=== PATIENT | female | born 1960 | race Caucasian/White ===

== ENCOUNTER 2016-12-02 23:32 | Inpatient (IN) ==
[2016-12-03 01:30] LABS: Basophils # 0.1 10*3/uL (0.0-0.2); Basophils % 0.7 % (0.0-0.8); Eosinophils # 0.2 10*3/uL (0.0-0.87); Eosinophils % 1.2 % (0.00-10.9); Hematocrit 43.3 VOL% (35.7-47.0); Hemoglobin 13.9 GM/DL (12.0-16.0); Immature Granulocytes % 0.4 %; Immature Granulocytes Absolute 0.06 #; Lymphocytes # 3.9 10*3/uL (1.4-4.0); Lymphocytes % 28.5 % (21.3-54.2); Mean Corpuscular HGB Conc 32.1 GM/DL (32-36); Mean Corpuscular Hemoglobin 26 PG (27-34); Mean Corpuscular Volume 79.6 FL (87-102); Mean Platelet Volume 9.8 FL (9.6-12.0); Monocytes % 7.6 % (1.7-12.7); Neutrophils # 8.4 10*3/uL (1.4-7.4); Neutrophils % 61.6 % (38.7-73.9); Platelet Count 373 T/CUMM (130-400); Red Blood Count 5.44 MC/CUMM (3.8-5.5); Red Cell Distribution Width 14.2 % (9.3-17.3); White Blood Count 13.7 T/CUMM (4-12)
[2016-12-03 01:47] LABS: Calcium 8.9 MG/DL (8.5-10.1); Osmolality,Calculated 291.7 MOS/KG (273-304); PT Patient Result 10.1 SECS; Partial Thromboplastin Time 28.9 SECS (0-40); Potassium 3.9 MMOL/L (3.5-5.1)
[2016-12-03] MEDS ORDERED: CEFTAROLINE 600 MG in SODIUM CHLORIDE 0.9% 100 ML IV STA (01:59)
--- NOTE | 2016-12-03 02:01 | Emergency Department Note ---
Chacho Will Brittany, am scribing for, and in the presence of, Frank Reed MD 00 :25. Brianna Will Hans, MD, personally performed the services described in this documentation, ascribed by Alma Flor in my presence, and it is both accurate and complete . Arrival - Arrival Chief Complaint: Extremity Problem Stated Complaint: left leg ED Nursing Triage Note: Patient to triage with c/o cellulitis to E for the past 2 weeks. Patient was seen in ED for same c/o 2 weeks ago and given ABX but cellulitis has not improved. Mode of Arrival: Ambulatory Limitations: No Limitations Source: Patient, RN Notes Reviewed Time Seen by Provider: 12/02/16 23:53 - History of Present Illness HPI Narrative: Patient is a 56 y/o white female presenting to the ED with c/o left lower leg swelling and redness that began tonight. Patient reports that she was seen here about last week with the same complaint and was diagnosed with Cellulitis. She was placed on Clindamycin which she has been taking compliantly and has 3 more doses left. Patient notes that the Cellulitis was getting better, but noticed tonight that her left lower leg was beginning to swell and have redness once again. She states that has not led a sedentary lifestyle since diagnosis of Cellulitis, noting that she has been working as scheduled. Patient reports that on last visit she did have an ultrasound of the LLE performed to rule out DVT. She currently is on Plavix secondary to AL 2 years ago with stent placement. Patient has no further complaints. Date of Last Menstrual Period: menopause Allergies/Adverse Reactions: Allergies Allergy/AdvReac Type Severity Reaction Status Date / Time Sulfa (Sulfonamide Allergy Severe Swelling Verified 12/02/16 23:39 Antibiotics) of Lip/Tongue/Throat Home Medications: Home Medications Medication Instructions Recorded Confirmed Type Clindamycin Cap [Cleocin Cap] 300 mg PO Q6HR #30 capsule 11/23/16 12/02/16 Rx Amlodipine Besylate [Amlodipine 1 tablet PO BID 12/02/16 12/02/16 History Besylate] Aspirin EC Tab 1 tablet PO DAILY 12/02/16 12/02/16 History Atorvastatin [Lipitor] 1 tablet PO BEDTIME 12/02/16 12/02/16 History Clopidogrel Bisulfate [Clopidogrel] 1 tablet PO DAILY 12/02/16 12/02/16 History Gabapentin [Gabapentin] 1 capsule PO TID 12/02/16 12/02/16 History Hydrocodone/Acetaminophen 1 tablet PO Q4-6H PRN 12/02/16 12/02/16 History [Hydrocodon-Acetaminophn 10-325] Insulin Degludec [Tresiba 95 units SUBCUT BEDTIME 12/02/16 12/02/16 History Flextouch U-200] Losartan/Hydrochlorothiazide 1 tablet PO DAILY 12/02/16 12/02/16 History [Losartan-Hctz 50-12.5 mg Tab] Metformin HCl [Metformin HCl ER] 2 tablet PO BID 12/02/16 12/02/16 History Metoprolol Tartrate Tab [Lopressor 1 tablet PO BID 12/02/16 12/02/16 History Tab] Omeprazole [Omeprazole] 1 capsule PO DAILY 12/02/16 12/02/16 History Review of System - Review of System 12 point system: reviewed and no additional remarkable complaints except as stated - Review of System Constitutional: Absent: chills, fever Eyes: Absent: vision change Head/Ears/Nose/Throat: Absent: nasal drainage, sore throat Respiratory: Absent: respiratory distress Cardiovascular: Absent: chest pain Gastrointestinal: Absent: abdominal pain Genitourinary female: Absent: dysuria, frequency, urgency Musculoskeletal: Present: leg pain (left). Absent: arm pain, back pain, neck pain Skin: Present: other (erythema left leg) Neurological: Absent: headache Psychiatric: Absent: anxiety, depression Medical,Surgical,& Family Hx - Medical History Cardio: History of: Hypertension, AL Neurology: No history of: Seizures Endocrine: History of: Diabetes Mellitus (IDDM), Dyslipidemia - Social History Smoking Status: Never smoker Frequency of Alcohol Use: None Type of Drug Use: None Exam Vital Signs: Vital Signs Temperature 97.8 F 12/02/16 23:35 Pulse Rate 87 12/02/16 23:35 Respiratory Rate 20 12/02/16 23:35 Blood Pressure 197/85 12/02/16 23:35 O2 Sat by Pulse Oximetry 95 12/02/16 23:35 - General General appearance: alert, in no apparent distress - Head Head exam: Present: atraumatic, normocephalic, normal inspection - Eye Eye exam: Present: normal appearance, PERRL, EOMI - ENT ENT exam: Present: normal exam, normal oropharynx - Neck Neck exam: Present: normal inspection, full ROM, trachea midline - Chest Chest inspection: Present: normal inspection, symmetric chest wall rise - Respiratory Respiratory exam: Present: normal lung sounds bilaterally. Absent: respiratory distress - Cardiovascular Cardiovascular exam: Present: regular rate, normal rhythm, normal heart sounds - Abdominal Exam Abdominal exam: Present: soft, normal bowel sounds. Absent: tenderness - Extremities Exam Extremities exam: Present: tenderness (left lower leg), pedal edema (non- pitting left lower extremity). Absent: normal inspection (petechial hemorrhage to left lower leg) - Neurological Exam Neurological exam: Present: alert, oriented X3, CN II-XII intact. Absent: motor sensory deficit - Psychiatric Psychiatric exam: Present: normal affect, normal mood - Skin Skin exam: Present: warm, dry Course Course Narrative: This patient was evaluated with labwork and duplex US. No DVT was seen. She has failed outpatient antibiotics for cellulitis and also has hyperglycemia. I discussed this with the hospitalist community relations [employer] lieutenant and they agreed to admit for antibiotics, glucose control, and leg elevation. Results - Labs CBC & BMP: 12/03/16 01:09 12/03/16 01:09 Lab Results: I have reviewed the patients labs Labs: Laboratory Tests 12/03/16 01:09 WBC 13.7 H RBC 5.44 Hgb 13.9 Hct 43.3 MCV 79.6 L MCH 26 L Plt Count 373 Neut # (Auto) 8.4 H [place] # (Auto) 1.0 H Disposition Clinical Impression: Cellulitis Case discussed with: patient, patient's family Disposition: Still a Patient Condition: Stable Time of Disposition: 02:01
[2016-12-03] MEDS ORDERED: IBUPROFEN 400 MG TABLET ONE (02:13)
[2016-12-03] MEDS ORDERED: CEFTAROLINE 600 MG VIAL IV ONE (02:22)
--- NOTE | 2016-12-03 02:47 | Hospitalist History & Physical ---
Assessment and Plan - Time spent with patient Time spent with patient: Less than 30 minutes (1) Cellulitis Status: Acute Assessment and plan: Currently afebrile Leukocytosis of 13 Pending blood cultures We will start Teflaro twice daily Tylenol as needed fever Current Visit: Yes (2) Hyperglycemia Status: Chronic Assessment and plan: LFTs pending We will continue patient's metformin and place on sliding scale insulin with high-dose regimen Current Visit: Yes History of Present Illness Chief complaint: left leg pain History of present illness: Called to the ER for Ms. Heredia who is a 56 year old female presents tonight complaining of left lower extremity pain that started approximately 2 weeks ago. Patient states she was playing pool and scratched her left leg with her right foot. The next day she noticed her left leg was swollen and hot. She presented to the [facility] area on November 23 for same complaint and was given Cleocin p.o. Patient states she has 3 doses left and her leg is not improved. She states she has ran intermittent fevers. She denies nausea, vomiting, diarrhea, chest pain, shortness of breath, or palpitations. In the ER night her blood work revealed a white blood cell count of 13.7 and a glucose of 368. Dopplers were done which were negative. Blood cultures were drawn and patient was given Teflaro. Additional history includes hypertension, diabetes, [place] status post CABG with 3 stents placed, dyslipidemia, neuropathy, chronic back pain, GERD, arthritis, and T & A. Her PCP is Dr. Cochran. The last time she saw him was 2 months ago where her Hgb A1c was 12 and she was started on Tresiba. She states her blood glucoses have been 200-300 for 2-3 years. She will be admitted to hospital medicine with IV antibiotics and tighter glucose control. Home medications were reviewed and reconciled as appropriate. Patient is a full code. Home Medications Medication Instructions Recorded Confirmed Type Clindamycin Cap [Cleocin Cap] 300 mg PO Q6HR #30 capsule 11/23/16 12/02/16 Rx Amlodipine Besylate [Amlodipine 1 tablet PO BID 12/02/16 12/02/16 History Besylate] Aspirin EC Tab 1 tablet PO DAILY 12/02/16 12/02/16 History Atorvastatin [Lipitor] 1 tablet PO BEDTIME 12/02/16 12/02/16 History Clopidogrel Bisulfate [Clopidogrel] 1 tablet PO DAILY 12/02/16 12/02/16 History Gabapentin [Gabapentin] 1 capsule PO TID 12/02/16 12/02/16 History Hydrocodone/Acetaminophen 1 tablet PO Q4-6H PRN 12/02/16 12/02/16 History [Hydrocodon-Acetaminophn 10-325] Insulin Degludec [Tresiba 95 units SUBCUT BEDTIME 12/02/16 12/02/16 History Flextouch U-200] Losartan/Hydrochlorothiazide 1 tablet PO DAILY 12/02/16 12/02/16 History [Losartan-Hctz 50-12.5 mg Tab] Metformin HCl [Metformin HCl ER] 2 tablet PO BID 12/02/16 12/02/16 History Metoprolol Tartrate Tab [Lopressor 1 tablet PO BID 12/02/16 12/02/16 History Tab] Omeprazole [Omeprazole] 1 capsule PO DAILY 12/02/16 12/02/16 History Allergies Allergy/AdvReac Type Severity Reaction Status Date / Time Sulfa (Sulfonamide Allergy Severe Swelling Verified 12/02/16 23:39 Antibiotics) of Lip/Tongue/Throat Medical,Surgical,& Family Hx - Medical History Cardio: History of: Hypertension, IN No history of: CHF, CAD Neurology: No history of: Seizures Endocrine: History of: Diabetes Mellitus (IDDM), Dyslipidemia Gastrointestinal: History of: GERD Musculoskeletal: History of: Musculoskeletal Problems (Neuropathy) - Surgical History Neurologic Surgeries: Surgical HX of: Neurologic Surgery (Back tumor removal) Reproductive Surgeries: Surgical HX of;: Breast Surgery (Left breast lumpectomy) Orthopedic Surgeries: Surgical HX of;: Orthopedic Surgery (Spurs removed from both feet) - Family History Family History: Reports;: Family Diabetes (Mother, sister, brother.), Family Heart Disease (FatherMI), Additional Family History (Mother cranial aneurysm) - Social History Smoking Status: Former smoker (Quit 21 years ago was a pack a smoker day) Have you smoked in the last 12 months: No Frequency of Alcohol Use: None Type of Drug Use: None Marital Status: Single Lives With:: Significant Other Functional capacity: independent ambulation - Constitutional Constitutional: Present: chills, fever(s). Absent: weakness - EENT Eyes: Absent: blurry vision Ears: Absent: tinnitus Nose, mouth and throat: Absent: headache(s), neck pain, sore throat, throat swelling - Cardiovascular Cardiovascular: Absent: chest pain at rest, chest pain with activity, dyspnea, edema, orthopnea, palpitations - Respiratory Respiratory: Absent: cough, wheezing, change in phlegm color - Gastrointestinal Gastrointestinal: Absent: abdominal pain, constipation, diarrhea, vomiting - Genitourinary Genitourinary: Absent: difficulty urinating - Musculoskeletal Musculoskeletal: Absent: other (Left leg pain and swelling) - Neurological Neurological: Absent: confusion, syncope - Psychiatric Psychiatric: Absent: anxiety - Endocrine Endocrine: Absent: cold intolerance, heat intolerance - Hematologic/Lymphatic Hematologic/Lymphatic: Absent: easy bleeding, easy bruising Exam - Constitutional Vitals: Period Temp Pulse Resp BP Sys/Shukla Pulse Ox Last 24 Hr 97.8 F-97.8 F 87-87 20-20 197-197/85-85 95 General appearance: normal weight, over weight - Head Head exam: Present: normal inspection - Eye Eye exam: Present: EOMI Pupils: Present: DAYANNA, normal accommodation - ENT ENT exam: Present: normal exam - Neck Neck exam: Present: normal inspection. Absent: lymphadenopathy - Respiratory Respiratory exam: Present: clear to auscultation bilaterally (Respirations even and unlabored. Symmetrical rise and fall of chest noted.). Absent: accessory muscle use - Cardiovascular Cardiovascular exam: Present: regular rate and rhythm. Absent: diastolic murmur , systolic murmur - GI/Abdominal GI/Abdominal exam: Present: normal bowel sounds, soft. Absent: firm, tenderness - Extremities Exam Extremities exam: Absent: normal inspection, normal capillary refill - Neurological Exam Neurological exam: Present: alert, oriented X3 (Makes good eye contact. Answers all questions appropriately.) - Psychiatric Psychiatric exam: Present: normal affect, normal mood - Skin Skin exam: Present: normal color, warm, dry, intact Results - Labs CBC & BMP: 12/03/16 01:09 12/03/16 01:09 Lab Results: I have reviewed the past 24 hour labs
[2016-12-03] MEDS ORDERED: MORPHINE 2 MG/1 ML SYRINGE IV PRN (03:59)
[2016-12-03] MEDS ORDERED: DEXTROSE 50% 25 GM/50 ML VIAL IV PRN (03:59)
[2016-12-03] MEDS: SODIUM CHLORIDE 0.9% 1,000 ML IV SCH ×2 (03:59→14:44)
[2016-12-03] MEDS ORDERED: GLUCAGON 1 MG VIAL IM PRN (03:59)
[2016-12-03] MEDS ORDERED: ONDANSETRON 4 MG/2 ML VIAL IV PRN (03:59)
[2016-12-03] MEDS ORDERED: ACETAMINOPHEN 325 MG TABLET PO PRN (03:59)
[2016-12-03] MEDS ORDERED: INFLUENZA VIRUS VACCINE 0.5 ML SYRINGE IM ONE (04:26)
--- NOTE | 2016-12-03 06:12 | Ultrasound Report ---
Exam: Left lower extremity venous Doppler/duplex ultrasound Comparison: 11/23/2016 Clinical history: Left leg swelling Technique: Duplex scan of the left lower extremity veins using th B- mode/grayscale imaging and Dopplers spectral analysis and color flow. Findings: There is normal compression and augmentation of the left common femoral, superficial femoral and popliteal veins. The proximal left greater saphenous veins appear to be patent. Major venous structures of the left lower extremity demonstrating normal course and caliber with normal color-flow study and spectral analysis. Impression: No evidence to suggest deep venous thrombosis within the left lower extremity. Ultrasound images were captured and stored. PROCEDURE INTERPRETED AT [facility] DEPARTMENT OF RADIOLOGY Final Report Signed by: Dr. Jacqueline Beauchamp
[2016-12-03] MEDS: INSULIN REGULAR 100 UNIT/ML SUBCUT SCH ×4 (06:42→23:53)
[2016-12-03 08:03] LABS: Alanine Aminotransferase 28 U/L (13-56); Albumin 3.6 G/DL (3.4-5.0); Alkaline Phosphatase 131 U/L (45-117); Aspartate Amino Transferase 20 U/L (0-37); Bilirubin,Direct < 0.100 MG/DL (0.0-0.20); Bilirubin,Indirect 0.3 MG/DL (0.0-1.0); Bilirubin,Total < 0.39 MG/DL (0.2-1.0)
[2016-12-03] MEDS: ENOXAPARIN 40 MG/0.4 ML SYRINGE SUBCUT SCH (08:54)
[2016-12-03] MEDS: metFORMIN 500 MG TABLET PO SCH ×2 (08:54→18:20)
[2016-12-03] MEDS: GABAPENTIN 300 MG CAPSULE PO SCH ×3 (08:55→21:23)
[2016-12-03] MEDS: ASPIRIN EC 81 MG TABLET PO SCH (08:55)
[2016-12-03] MEDS: DOCUSATE SODIUM 100 MG CAPSULE PO SCH ×2 (08:55→21:22)
[2016-12-03] MEDS: PANTOPRAZOLE 40 MG TABLET PO SCH (08:55)
[2016-12-03] MEDS: METOPROLOL TARTRATE 25 MG TABLET PO SCH ×2 (08:55→21:23)
[2016-12-03] MEDS: CLOPIDOGREL 75 MG TABLET PO SCH (08:55)
[2016-12-03] MEDS: LOSARTAN/HCTZ 50-12.5 MG TABLET PO SCH (08:55)
[2016-12-03] MEDS ORDERED: ASPIRIN EC 81 MG TABLET PO SCH (09:00)
[2016-12-03] MEDS ORDERED: GABAPENTIN 300 MG CAPSULE PO SCH (09:00)
[2016-12-03] MEDS ORDERED: amLODIPine 10 MG TABLET PO SCH ×2 (09:00)
[2016-12-03] MEDS ORDERED: METOPROLOL TARTRATE 25 MG TABLET PO SCH (09:00)
[2016-12-03] MEDS ORDERED: CLOPIDOGREL 75 MG TABLET PO SCH (09:00)
[2016-12-03] MEDS: CEFTAROLINE 600 MG in SODIUM CHLORIDE 0.9% 50 ML IV SCH (15:00)
[2016-12-03] MEDS ORDERED: CYCLOBENZAPRINE 10 MG TABLET PO PRN (15:40)
--- NOTE | 2016-12-03 15:42 | Hospitalist Progress Note ---
Assessment and Plan (1) Cellulitis Status: Acute Assessment and plan: Teflaro. Current Visit: Yes (2) Non-insulin dependent type 2 diabetes mellitus Status: Acute Assessment and plan: Hemoglobin A1c start Lantus continue metformin. Current Visit: Yes (3) Hypertension Status: Acute Assessment and plan: Continue metoprolol, Norvasc, losartan/hydrochlorothiazide Current Visit: Yes Hospitalist: Subjective Interval history: Cellulitis to the left leg almost completely resolved. Looks good. Patient feels good today. She has some petechiae around her ankle area. Exam - Constitutional Vitals: Period Temp Pulse Resp BP Sys/Shukla Pulse Ox Last 24 Hr 97.8 F-98.3 F 63-87 18-20 146-197/60-85 92-95 Exam: Heart Rate-[RRR] Lungs-[CTAB] GI-[+bs soft, NT, obese] Ext-[1+ edema to her left lower extremity] Skin petechiae around ankle Neuro [Motor 5/5], [alert and oriented times 3] psych [normal mood and affect] General [no acute distress] Results - Labs CBC & BMP: 12/03/16 01:09 12/03/16 01:09 Lab Results: I have reviewed the past 24 hour labs - Diagnostic Findings Procedure: Ultrasound: report reviewed by me (No evidence of DVT)
[2016-12-03] MEDS: INSULIN GLARGINE 100 UNIT/ML SUBCUT SCH (17:33)
[2016-12-03] MEDS ORDERED: INSULIN DEGLUDEC SUBCUT SCH (21:00)
[2016-12-03] MEDS ORDERED: ATORVASTATIN 10 MG TABLET PO SCH ×2 (21:00)
[2016-12-04] MEDS: CEFTAROLINE 600 MG in SODIUM CHLORIDE 0.9% 50 ML IV SCH (03:01)
[2016-12-04] MEDS: INSULIN REGULAR 100 UNIT/ML SUBCUT SCH (06:08)
[2016-12-04] MEDS ORDERED: amLODIPine 10 MG TABLET PO SCH (09:00)
[2016-12-04] MEDS: PANTOPRAZOLE 40 MG TABLET PO SCH (09:03)
[2016-12-04] MEDS: LOSARTAN/HCTZ 50-12.5 MG TABLET PO SCH (09:03)
[2016-12-04] MEDS: DOCUSATE SODIUM 100 MG CAPSULE PO SCH (09:03)
[2016-12-04] MEDS: GABAPENTIN 300 MG CAPSULE PO SCH (09:03)
[2016-12-04] MEDS: METOPROLOL TARTRATE 25 MG TABLET PO SCH (09:03)
[2016-12-04] MEDS: ASPIRIN EC 81 MG TABLET PO SCH (09:03)
[2016-12-04] MEDS: CLOPIDOGREL 75 MG TABLET PO SCH (09:03)
[2016-12-04] MEDS: metFORMIN 500 MG TABLET PO SCH (09:03)
[2016-12-04] MEDS: INSULIN GLARGINE 100 UNIT/ML SUBCUT SCH (09:04)
[2016-12-04] MEDS: ENOXAPARIN 40 MG/0.4 ML SYRINGE SUBCUT SCH (09:04)
[2016-12-04 09:43] VITALS: BP 159/68
--- NOTE | 2016-12-04 11:19 | Discharge Summary ---
Hospital Course - Hospital Course Hospital Course: 56 year old female presents tonight complaining of left lower extremity pain that started approximately 2 weeks ago. Patient states she was playing pool and scratched her left leg with her right foot. The next day she noticed her left leg was swollen and hot. She presented to the [facility] area on November 23 for same complaint and was given Cleocin p.o. venous Dopplers were negative. She was started on Teflaro and her cellulitis resolved. She had some residual petechiae around her ankle. Patient was given p.o. Augmentin for 7 more days. She will follow-up with Dr. Cochran her primary care physician in 1-2 weeks. - Time spent with patient Time with patient DS: Less than 30 minutes (25 min) Diagnosis - Discharge Diagnosis (1) Cellulitis Status: Acute (2) Non-insulin dependent type 2 diabetes mellitus Status: Acute (3) Hypertension Status: Acute Discharge Plan - Discharge Data Disposition: Disch To Home/Self Care Condition at Discharge: Stable Discharge Diet: diabetic diet Activity: resume usual activities as tolerated Hygiene: no restrictions Weight Bearing at Discharge: full weight bearing - Discharge Medications New Amoxicillin/Clav Tab [Augmentin Tab] 875 mg PO BID #14 tablet Atorvastatin [Lipitor] 10 mg PO BEDTIME tablet Clopidogrel [Plavix] 75 mg PO DAILY tablet Continue Omeprazole 1 capsule PO DAILY Metoprolol Tartrate Tab [Lopressor Tab] 1 tablet PO BID Insulin Degludec [Tresiba Flextouch U-200] 95 units SUBCUT BEDTIME Metformin HCl [Metformin HCl ER] 2 tablet PO BID Hydrocodone/Acetaminophen [Hydrocodon-Acetaminophn 10-325] 1 tablet PO TID PRN PRN Reason: Pain Aspirin EC Tab 1 tablet PO DAILY Losartan/Hydrochlorothiazide [Losartan-Hctz 50-12.5 mg Tab] 1 tablet PO DAILY Gabapentin 1 capsule PO TID Amlodipine Besylate 1 tablet PO BID Cyclobenzaprine [Flexeril] 10 mg PO BID PRN PRN Reason: Muscle Spasm Discontinued Clopidogrel Bisulfate [Clopidogrel] 1 tablet PO DAILY Atorvastatin [Lipitor] 1 tablet PO BEDTIME Clindamycin Cap [Cleocin Cap] 300 mg PO Q6HR #30 capsule - Follow Up or Referral Follow Up: Kamran Cochran DO [Physician] - 2 Weeks - Forms/Instructions Instructions: Cellulitis (DC) Exam - Constitutional Vitals: Period Temp Pulse Resp BP Sys/Shukla Pulse Ox Last 24 Hr 97.7 F-98.5 F 61-75 18-20 149-184/65-76 94-96 General appearance: no acute distress, morbidly obese - Respiratory Respiratory exam: Present: clear to auscultation bilaterally. Absent: wheezes - Cardiovascular Cardiovascular exam: Present: regular rate and rhythm. Absent: systolic murmur - GI/Abdominal GI/Abdominal exam: Present: normal bowel sounds, soft. Absent: tenderness - Extremities Exam Extremities exam: Present: normal inspection, normal capillary refill Discharge Results Procedures and tests throughout hospitalization: Pending Orders 12/03/16 01:09 Blood Culture Stat Labs on day of discharge: Labs from last 24 hours 12/04/16 12/03/16 12/03/16 06:07 23:23 16:29 POC Glucose 99 160 H 161 H Hemoglobin A1c 12/03/16 12/03/16 11:29 01:09 POC Glucose 157 H Hemoglobin A1c 11.9 H Preliminary micro results at discharge 12/03/16 01:09 Blood Culture - Preliminary Blood No growth at 1 day 12/03/16 01:56 Blood Culture - Preliminary Blood No growth at 1 day DS: Provider Date of admission: 12/03/16 02:31 Primary care physician: . No PCP Attending physician on admission: Rossy Richter MD Discharging clinician: Rossy Richter MD
== END 2016-12-04 13:06 | disposition home or self-care (01) | DRG 603 ==
LOC: N.ED 23:32 → N.EDINP 12-03 02:31 → N.5E 12-03 02:48
PROVIDERS: ADMIT Internal Medicine; ATTEND Internal Medicine

== ENCOUNTER 2017-08-20 16:49 | Inpatient (IN) ==
[2017-08-23 07:52] VITALS: BP 136/60
== END 2017-08-23 11:45 | disposition home or self-care (01) | DRG 690 ==
LOC: N.ED 16:49 → N.EDINP 18:24 → SUATTDRO 18:25 → N.EDINP 20:46 → N.2E 20:52
PROVIDERS: ADMIT Family Medicine; ATTEND Internal Medicine

== ENCOUNTER 2017-10-27 17:53 | Inpatient (IN) ==
[2017-10-27] MEDS ORDERED: PANTOPRAZOLE 40 MG VIAL IV STA (18:43)
[2017-10-27] MEDS ORDERED: METOCLOPRAMIDE 10 MG/2 ML VIAL IV STA (18:43)
[2017-10-27] MEDS ORDERED: DICYCLOMINE 20 MG/2 ML AMP IM ONE (18:43)
[2017-10-27] MEDS ORDERED: ONDANSETRON 4 MG/2 ML VIAL IV STA (18:43)
[2017-10-27] MEDS ORDERED: SODIUM CHLORIDE 0.9% 1,000 ML IV STA (18:43)
[2017-10-27] MEDS ORDERED: LEVOFLOXACIN INJ 750 MG in PREMIX 1 EACH IV STA (18:48)
[2017-10-27 19:05] LABS: Basophils % 0.2 % (0.0-0.8); Eosinophils % 0.2 % (0.00-10.9); Hemoglobin 12.8 GM/DL (12.0-16.0); Immature Granulocytes % 0.3 %; Immature Granulocytes Absolute 0.05 #; Lymphocytes # 0.7 10*3/uL (1.4-4.0); Lymphocytes % 4.7 % (21.3-54.2); Mean Corpuscular HGB Conc 30.5 GM/DL (32-36); Mean Corpuscular Hemoglobin 23 PG (27-34); Mean Corpuscular Volume 74.3 FL (87-102); Monocytes # 0.3 10*3/uL (0.11-0.8); Monocytes % 1.9 % (1.7-12.7); Neutrophils # 13.3 10*3/uL (1.4-7.4); Neutrophils % 92.7 % (38.7-73.9); Platelet Count 397 T/CUMM (130-400); Red Blood Count 5.65 MC/CUMM (3.8-5.5); Red Cell Distribution Width 16.7 % (9.3-17.3); White Blood Count 14.4 T/CUMM (4-12)
[2017-10-27 19:30] LABS: Lactic Acid 2.9 MMOL/L (0.4-2.0)
[2017-10-27 19:32] LABS: Alanine Aminotransferase 62 U/L (13-56); Albumin 3.8 G/DL (3.4-5.0); Alkaline Phosphatase 191 U/L (45-117); Amylase 20 U/L (25-115); Aspartate Amino Transferase 102 U/L (0-37); Blood Urea Nitrogen 17 MG/DL (7-18); Calcium 9.3 MG/DL (8.5-10.1); Glucose 399 MG/DL (74-106); Osmolality,Calculated 291.8 MOS/KG (273-304); Potassium 4.4 MMOL/L (3.5-5.1); Sodium 137 MMOL/L (136-145); Total Protein 7.8 G/DL (6.4-8.3); Troponin I < 0.015 NG/ML (0.00-0.045)
[2017-10-27 19:33] LABS: Apearance,Urine CLEAR (Clear); Bilirubin,Urine Negative (Negative); Blood, Urine Negative (Negative); Glucose,Urine (UA) >=500 mg/dL (Negative); Ketones,Urine Negative (Negative); Nitrite,Urine Negative (Negative); Protein,Urine Negative; RBC,Urine <1 /HPF (0-4); Squamous Epithelial Cell,Urine Occasional /HPF (0-10); Urine Color Yellow (Yellow); Urine Specific Gravity 1.026 (1.001-1.035); Urine Urobilinogen < 2.0 EU/DL (0.2-1.0); WBC,Urine <1 /HPF (0-6)
[2017-10-27 19:36] LABS: Band Neutrophils 3 % (0-10); Lymphocytes 4 % (20-55); Segmented Neutrophils 91 % (50-85)
[2017-10-27 19:39] LABS: Hypochromasia 1+; Platelet Estimate Normal; Total Cells Counted 100
[2017-10-27] MEDS ORDERED: fentaNYL 100 MCG/2 ML VIAL IV PRN (19:58)
[2017-10-27] MEDS ORDERED: hydrALAZINE 20 MG/1 ML VIAL IV PRN (19:58)
[2017-10-27] MEDS ORDERED: ORPHENADRINE 60 MG/2 ML VIAL IV PRN (19:58)
[2017-10-27] MEDS ORDERED: ONDANSETRON 4 MG/2 ML VIAL IV PRN (19:58)
[2017-10-27] MEDS ORDERED: fentaNYL 100 MCG/2 ML VIAL IV STA (20:14)
[2017-10-27] MEDS ORDERED: LACTATED RINGERS 1,000 ML IV ONE (21:16)
[2017-10-27] MEDS ORDERED: HYDROmorphone 2 MG/1 ML VIAL IV ONE (21:25)
[2017-10-27] MEDS ORDERED: HYDROmorphone 2 MG/1 ML VIAL ONE (21:25)
[2017-10-27] MEDS ORDERED: ONDANSETRON 4 MG/2 ML VIAL IV ONE (21:25)
[2017-10-27] MEDS ORDERED: ACETAMINOPHEN 500 MG TABLET PO ONE (21:41)
[2017-10-27] MEDS ORDERED: CYCLOBENZAPRINE 10 MG TABLET PO PRN (21:56)
[2017-10-27] MEDS ORDERED: HYDROmorphone 2 MG/1 ML VIAL IV PRN (21:56)
[2017-10-27] MEDS ORDERED: DEXTROSE 50% 25 GM/50 ML VIAL IV PRN (21:56)
[2017-10-27] MEDS ORDERED: GLUCAGON 1 MG VIAL IM PRN (21:56)
[2017-10-27] MEDS ORDERED: ENOXAPARIN 40 MG/0.4 ML SYRINGE SUBCUT SCH (22:00)
[2017-10-27] MEDS: INSULIN REGULAR 100 UNIT/ML SUBCUT SCH (23:24)
[2017-10-27] MEDS: LACTATED RINGERS 1,000 ML IV SCH (23:44)
[2017-10-27] MEDS: PIPERACILLIN/TAZOBACTAM 3,375 MG in SODIUM CHLORIDE 0.9% 100 ML IV SCH (23:46)
[2017-10-27] MEDS: ENOXAPARIN 40 MG/0.4 ML SYRINGE SUBCUT SCH (23:54)
[2017-10-28] MEDS: METOCLOPRAMIDE 10 MG/2 ML VIAL IV SCH ×4 (00:35→17:44)
[2017-10-28] MEDS: INSULIN REGULAR 100 UNIT/ML SUBCUT SCH ×6 (02:57→21:48)
[2017-10-28] MEDS ORDERED: cefOXitin 2,000 MG in SYRINGE 1 EACH IV ONE (06:00)
[2017-10-28] MEDS: PIPERACILLIN/TAZOBACTAM 3,375 MG in SODIUM CHLORIDE 0.9% 100 ML IV SCH ×3 (07:11→21:21)
[2017-10-28 08:14] LABS: Basophils # 0.1 10*3/uL (0.0-0.2); Basophils % 0.2 % (0.0-0.8); Hematocrit 37.6 VOL% (35.7-47.0); Hemoglobin 11.4 GM/DL (12.0-16.0); Immature Granulocytes % 0.8 %; Immature Granulocytes Absolute 0.17 #; Lymphocytes # 1.2 10*3/uL (1.4-4.0); Lymphocytes % 5.4 % (21.3-54.2); Mean Corpuscular HGB Conc 30.3 GM/DL (32-36); Mean Corpuscular Hemoglobin 23 PG (27-34); Mean Corpuscular Volume 75.2 FL (87-102); Mean Platelet Volume 9.5 FL (9.6-12.0); Monocytes # 1.2 10*3/uL (0.11-0.8); Monocytes % 5.4 % (1.7-12.7); Neutrophils # 19.4 10*3/uL (1.4-7.4); Neutrophils % 88.2 % (38.7-73.9); Platelet Count 331 T/CUMM (130-400); Red Cell Distribution Width 16.4 % (9.3-17.3)
[2017-10-28 08:34] LABS: Band Neutrophils 4 % (0-10); Eosinophils 1 % (0-10); Hypochromasia 1+; Lymphocytes 3 % (20-55); Platelet Estimate Adequate; Segmented Neutrophils 89 % (50-85); Total Cells Counted 100
[2017-10-28] MEDS: CARVEDILOL 25 MG TABLET PO SCH (08:44)
[2017-10-28 08:48] LABS: Albumin 3.2 G/DL (3.4-5.0); Bilirubin,Total 3.5 MG/DL (0.2-1.0); Calcium 8.6 MG/DL (8.5-10.1); Osmolality,Calculated 292.1 MOS/KG (273-304); Potassium 4.1 MMOL/L (3.5-5.1); Total Protein 6.9 G/DL (6.4-8.3)
[2017-10-28] MEDS: hydrALAZINE 25 MG TABLET PO SCH ×2 (08:49→21:18)
[2017-10-28] MEDS: ASPIRIN EC 81 MG TABLET PO SCH (08:49)
[2017-10-28] MEDS: ATORVASTATIN 10 MG TABLET PO SCH (08:50)
[2017-10-28] MEDS: amLODIPine 10 MG TABLET PO SCH ×2 (08:50→21:18)
[2017-10-28] MEDS: VALSARTAN/HCTZ 160-12.5 MG TABLET PO SCH (08:50)
[2017-10-28] MEDS: GABAPENTIN 300 MG CAPSULE PO SCH ×3 (08:50→21:18)
[2017-10-28] MEDS: PANTOPRAZOLE 40 MG TABLET PO SCH (08:51)
[2017-10-28] MEDS ORDERED: PANTOPRAZOLE 40 MG VIAL IV SCH (09:00)
[2017-10-28] MEDS ORDERED: METOPROLOL TARTRATE 25 MG TABLET PO SCH (09:00)
[2017-10-28] MEDS ORDERED: LIDOCAINE 1%/EPI INJ 20 ML VIAL ONE (09:56)
[2017-10-28] MEDS ORDERED: TISSUE ADHESIVE 1 EACH APPLICATOR TOP ONE ×2 (09:56→13:44)
[2017-10-28] MEDS ORDERED: fentaNYL 100 MCG/2 ML VIAL ONE (13:58)
[2017-10-28] MEDS ORDERED: SEVOFLURANE 1 UNIT/15 MINUTE INH ONE (13:58)
[2017-10-28] MEDS ORDERED: PROPOFOL 200 MG/20 ML VIAL IV ONE (13:58)
[2017-10-28] MEDS ORDERED: KETOROLAC 30 MG/1 ML VIAL ONE (13:59)
[2017-10-28] MEDS ORDERED: ROCURONIUM 100 MG/10 ML VIAL IV ONE (13:59)
[2017-10-28] MEDS ORDERED: LACTATED RINGERS 1,000 ML IV ONE (13:59)
[2017-10-28] MEDS ORDERED: NEOSTIGMINE 10 MG/10 ML VIAL ONE (13:59)
[2017-10-28] MEDS ORDERED: ONDANSETRON 4 MG/2 ML VIAL ONE (13:59)
[2017-10-28] MEDS ORDERED: GLYCOPYRROLATE 0.4 MG/2 ML VIAL ONE ×2 (13:59)
[2017-10-28] MEDS ORDERED: DEXAMETHASONE 10 MG/1 ML VIAL ONE (13:59)
[2017-10-28] MEDS ORDERED: MIDAZOLAM 2 MG/2 ML VIAL ONE (13:59)
[2017-10-28] MEDS: LACTATED RINGERS 1,000 ML IV SCH (14:45)
[2017-10-28] MEDS: ACETAMINOPHEN 325 MG TABLET PO PRN (16:02)
[2017-10-28] MEDS: ENOXAPARIN 40 MG/0.4 ML SYRINGE SUBCUT SCH (21:18)
[2017-10-28] MEDS: NON-FORMULARY MEDICATION (Cranberry Conc/C/Bacill Coag [Cranberry Tablet] 1 EACH) PO SCH (21:21)
[2017-10-29] MEDS: METOCLOPRAMIDE 10 MG/2 ML VIAL IV SCH ×4 (00:44→18:23)
[2017-10-29] MEDS: INSULIN REGULAR 100 UNIT/ML SUBCUT SCH ×6 (02:34→21:28)
[2017-10-29] MEDS: LACTATED RINGERS 1,000 ML IV SCH ×2 (04:28→05:00)
[2017-10-29 06:15] LABS: Hemoglobin 10.9 GM/DL (12.0-16.0); Mean Corpuscular HGB Conc 31.1 GM/DL (32-36); Mean Corpuscular Hemoglobin 23 PG (27-34); Mean Corpuscular Volume 73.2 FL (87-102); Mean Platelet Volume 10.4 FL (9.6-12.0); Platelet Count 320 T/CUMM (130-400); Red Blood Count 4.78 MC/CUMM (3.8-5.5); Red Cell Distribution Width 16.7 % (9.3-17.3); White Blood Count 18.3 T/CUMM (4-12)
[2017-10-29 06:16] LABS: Basophils % 0.1 % (0.0-0.8); Immature Granulocytes % 0.9 %; Immature Granulocytes Absolute 0.17 #; Lymphocytes # 1.4 10*3/uL (1.4-4.0); Lymphocytes % 7.4 % (21.3-54.2); Monocytes # 1.2 10*3/uL (0.11-0.8); Monocytes % 6.6 % (1.7-12.7); Neutrophils # 15.6 10*3/uL (1.4-7.4)
[2017-10-29] MEDS: PIPERACILLIN/TAZOBACTAM 3,375 MG in SODIUM CHLORIDE 0.9% 100 ML IV SCH ×3 (06:42→21:29)
[2017-10-29 06:45] LABS: Albumin 2.8 G/DL (3.4-5.0); Bilirubin,Total 2.3 MG/DL (0.2-1.0); Calcium 8.5 MG/DL (8.5-10.1); Osmolality,Calculated 285.8 MOS/KG (273-304); Potassium 3.9 MMOL/L (3.5-5.1); Total Protein 6.7 G/DL (6.4-8.3)
[2017-10-29] MEDS: NON-FORMULARY MEDICATION (Cranberry Conc/C/Bacill Coag [Cranberry Tablet] 1 EACH) PO SCH ×2 (10:20→21:29)
[2017-10-29] MEDS: VALSARTAN/HCTZ 160-12.5 MG TABLET PO SCH (10:24)
[2017-10-29] MEDS: ATORVASTATIN 10 MG TABLET PO SCH (10:24)
[2017-10-29] MEDS: GABAPENTIN 300 MG CAPSULE PO SCH ×3 (10:25→21:28)
[2017-10-29] MEDS: PANTOPRAZOLE 40 MG TABLET PO SCH (10:25)
[2017-10-29] MEDS: amLODIPine 10 MG TABLET PO SCH ×2 (10:25→21:29)
[2017-10-29] MEDS: CARVEDILOL 25 MG TABLET PO SCH (10:25)
[2017-10-29] MEDS: hydrALAZINE 25 MG TABLET PO SCH (10:26)
[2017-10-29] MEDS: ASPIRIN EC 81 MG TABLET PO SCH (10:26)
[2017-10-29] MEDS: ENOXAPARIN 40 MG/0.4 ML SYRINGE SUBCUT SCH (21:28)
[2017-10-30] MEDS: METOCLOPRAMIDE 10 MG/2 ML VIAL IV SCH ×4 (00:40→18:18)
[2017-10-30] MEDS: LACTATED RINGERS 1,000 ML IV SCH (00:43)
[2017-10-30] MEDS: INSULIN REGULAR 100 UNIT/ML SUBCUT SCH ×6 (02:34→22:01)
[2017-10-30 04:56] LABS: Basophils # 0.1 10*3/uL (0.0-0.2); Basophils % 0.3 % (0.0-0.8); Eosinophils % 0.2 % (0.00-10.9); Hematocrit 35.5 VOL% (35.7-47.0); Hemoglobin 10.9 GM/DL (12.0-16.0); Immature Granulocytes % 0.8 %; Immature Granulocytes Absolute 0.12 #; Lymphocytes # 1.9 10*3/uL (1.4-4.0); Lymphocytes % 12.5 % (21.3-54.2); Mean Corpuscular HGB Conc 30.7 GM/DL (32-36); Mean Corpuscular Hemoglobin 23 PG (27-34); Mean Corpuscular Volume 75.5 FL (87-102); Mean Platelet Volume 10.3 FL (9.6-12.0); Monocytes # 1.2 10*3/uL (0.11-0.8); Monocytes % 7.8 % (1.7-12.7); Neutrophils # 12.1 10*3/uL (1.4-7.4); Neutrophils % 78.4 % (38.7-73.9); Platelet Count 336 T/CUMM (130-400); Red Cell Distribution Width 16.8 % (9.3-17.3); White Blood Count 15.4 T/CUMM (4-12)
[2017-10-30 05:57] LABS: Albumin 2.8 G/DL (3.4-5.0); Calcium 8.9 MG/DL (8.5-10.1); Osmolality,Calculated 283.8 MOS/KG (273-304); Potassium 3.7 MMOL/L (3.5-5.1); Total Protein 6.6 G/DL (6.4-8.3)
[2017-10-30] MEDS: PIPERACILLIN/TAZOBACTAM 3,375 MG in SODIUM CHLORIDE 0.9% 100 ML IV SCH ×3 (06:38→22:02)
[2017-10-30] MEDS: ATORVASTATIN 10 MG TABLET PO SCH (08:37)
[2017-10-30] MEDS: GABAPENTIN 300 MG CAPSULE PO SCH ×3 (08:37→22:01)
[2017-10-30] MEDS: amLODIPine 10 MG TABLET PO SCH ×2 (08:37→22:01)
[2017-10-30] MEDS: PANTOPRAZOLE 40 MG TABLET PO SCH (08:37)
[2017-10-30] MEDS: SPIRONOLACTONE 50 MG TABLET PO SCH (08:37)
[2017-10-30] MEDS: CLOPIDOGREL 75 MG TABLET PO SCH (08:37)
[2017-10-30] MEDS: CARVEDILOL 25 MG TABLET PO SCH (08:38)
[2017-10-30] MEDS: FUROSEMIDE 40 MG TABLET PO SCH (08:38)
[2017-10-30] MEDS: ASPIRIN EC 81 MG TABLET PO SCH (08:38)
[2017-10-30] MEDS: INSULIN GLARGINE 100 UNIT/ML SUBCUT SCH (08:39)
[2017-10-30] MEDS: NON-FORMULARY MEDICATION (Cranberry Conc/C/Bacill Coag [Cranberry Tablet] 1 EACH) PO SCH ×2 (08:40→22:02)
[2017-10-30] MEDS: VALSARTAN/HCTZ 160-12.5 MG TABLET PO SCH (08:44)
[2017-10-30] MEDS: ACETAMINOPHEN 325 MG TABLET PO PRN (18:17)
[2017-10-30] MEDS ORDERED: INSULIN GLARGINE 100 UNIT/ML SUBCUT SCH (21:00)
[2017-10-30] MEDS: ENOXAPARIN 40 MG/0.4 ML SYRINGE SUBCUT SCH (22:01)
[2017-10-31] MEDS: METOCLOPRAMIDE 10 MG/2 ML VIAL IV SCH ×3 (00:59→12:32)
[2017-10-31] MEDS: INSULIN REGULAR 100 UNIT/ML SUBCUT SCH ×3 (02:40→11:44)
[2017-10-31] MEDS: PIPERACILLIN/TAZOBACTAM 3,375 MG in SODIUM CHLORIDE 0.9% 100 ML IV SCH (05:14)
[2017-10-31] MEDS ORDERED: CIPROFLOXACIN 500 MG TABLET PO SCH (09:00)
[2017-10-31] MEDS: SPIRONOLACTONE 50 MG TABLET PO SCH (09:20)
[2017-10-31] MEDS: CLOPIDOGREL 75 MG TABLET PO SCH (09:21)
[2017-10-31] MEDS: ATORVASTATIN 10 MG TABLET PO SCH (09:21)
[2017-10-31] MEDS: PANTOPRAZOLE 40 MG TABLET PO SCH (09:21)
[2017-10-31] MEDS: VALSARTAN/HCTZ 160-12.5 MG TABLET PO SCH (09:21)
[2017-10-31] MEDS: GABAPENTIN 300 MG CAPSULE PO SCH (09:21)
[2017-10-31] MEDS: FUROSEMIDE 40 MG TABLET PO SCH (09:21)
[2017-10-31] MEDS: CARVEDILOL 25 MG TABLET PO SCH (09:22)
[2017-10-31] MEDS: INSULIN GLARGINE 100 UNIT/ML SUBCUT SCH (09:22)
[2017-10-31] MEDS: amLODIPine 10 MG TABLET PO SCH (09:22)
[2017-10-31] MEDS: ASPIRIN EC 81 MG TABLET PO SCH (09:22)
[2017-10-31] MEDS: NON-FORMULARY MEDICATION (Cranberry Conc/C/Bacill Coag [Cranberry Tablet] 1 EACH) PO SCH (09:23)
[2017-10-31 14:18] VITALS: BP 151/68
== END 2017-10-31 13:50 | disposition home or self-care (01) | DRG 418 ==
LOC: N.ED 17:53 → N.EDINP 19:57 → N.3E 20:47
PROVIDERS: ADMIT Surgery; ATTEND Surgery
PROC: LAPCHOL (2017-10-28 10:46)

== ENCOUNTER 2018-07-19 10:43 | Inpatient (IN) ==
[2018-07-19 11:51] LABS: Basophils # 0.1 10*3/uL (0.0-0.2); Basophils % 0.4 % (0.0-0.8); Eosinophils # 0.1 10*3/uL (0.0-0.87); Eosinophils % 0.2 % (0.00-10.9); Hematocrit 42.9 VOL% (35.7-47.0); Hemoglobin 13.5 GM/DL (12.0-16.0); Immature Granulocytes % 0.8 %; Immature Granulocytes Absolute 0.21 #; Lymphocytes # 2.4 10*3/uL (1.4-4.0); Lymphocytes % 8.7 % (21.3-54.2); Mean Corpuscular HGB Conc 31.5 GM/DL (32-36); Mean Corpuscular Volume 82.2 FL (87-102); Mean Platelet Volume 9.5 FL (9.6-12.0); Monocytes % 5.9 % (1.7-12.7); Platelet Count 371 T/CUMM (130-400); Red Blood Count 5.22 MC/CUMM (3.8-5.5); Red Cell Distribution Width 14.7 % (9.3-17.3); White Blood Count 27.6 T/CUMM (4-12)
[2018-07-19 12:11] LABS: Anisocytosis Slight; Band Neutrophils 16 % (0-10); Eosinophils 1 % (0-10); Lymphocytes 5 % (20-55); Platelet Estimate Normal; Segmented Neutrophils 72 % (50-85); Total Cells Counted 100
[2018-07-19 12:16] LABS: Alanine Aminotransferase 21 U/L (13-56); Albumin 3.8 G/DL (3.4-5.0); Alkaline Phosphatase 135 U/L (45-117); Aspartate Amino Transferase 11 U/L (0-37); Blood Urea Nitrogen 15 MG/DL (7-18); Calcium 9.4 MG/DL (8.5-10.1); Glucose 236 MG/DL (74-106); Osmolality,Calculated 283.7 MOS/KG (273-304)
[2018-07-19 12:24] LABS: Amorphous Crystals,Urine Moderate /HPF (Few); Apearance,Urine Slightly Hazy (Clear); Bacteria,Urine Occasional /HPF (Few); Bilirubin,Urine Negative (Negative); Blood, Urine Negative (Negative); Glucose,Urine (UA) >=500 mg/dL (Negative); Ketones,Urine Negative (Negative); Mucus,Urine Occasional /LPF (Occasional); Nitrite,Urine Negative (Negative); Protein,Urine 30 MG/DL; RBC,Urine <1 /HPF (0-4); Squamous Epithelial Cell,Urine Occasional /HPF (0-10); Urine Color Yellow (Yellow); Urine Specific Gravity 1.011 (1.001-1.035); Urine Urobilinogen < 2.0 EU/DL (0.2-1.0)
[2018-07-19] MEDS ORDERED: LACTULOSE 20 GM/30 ML UDCUP PO PRN (12:41)
[2018-07-19] MEDS ORDERED: PROMETHAZINE 25 MG/1 ML VIAL IM PRN (12:41)
[2018-07-19] MEDS ORDERED: MORPHINE 4 MG/1 ML VIAL IV PRN (12:41)
[2018-07-19] MEDS ORDERED: ONDANSETRON 4 MG/2 ML VIAL IV PRN (12:41)
[2018-07-19] MEDS ORDERED: ACETAMINOPHEN 325 MG/10.15 ML UDCUP PO ONE (12:45)
[2018-07-19] MEDS ORDERED: SODIUM CHLORIDE 0.9% 2,000 ML IV STA (12:48)
[2018-07-19] MEDS ORDERED: GLUCAGON 1 MG VIAL IM PRN (12:49)
[2018-07-19] MEDS ORDERED: DEXTROSE 50% 25 GM/50 ML SYRINGE IV PRN (12:49)
[2018-07-19] MEDS ORDERED: VANCOMYCIN INJ 1,500 MG in SODIUM CHLORIDE 0.9% 250 ML IV ONE (13:00)
[2018-07-19] MEDS ORDERED: PIPERACILLIN/TAZOBACTAM 3,375 MG in SODIUM CHLORIDE 0.9% 100 ML IV SCH (13:00)
[2018-07-19] MEDS ORDERED: metroNIDAZOLE INJ 500 MG in PREMIX 1 EACH IV SCH (13:30)
[2018-07-19] MEDS: PANTOPRAZOLE 40 MG TABLET PO SCH (13:30)
[2018-07-19] MEDS ORDERED: VANCOMYCIN INJ 1,500 MG in SODIUM CHLORIDE 0.9% 500 ML IV ONE (13:30)
[2018-07-19] MEDS ORDERED: LIDOCAINE 1% 20 ML VIAL ONE (14:46)
[2018-07-19] MEDS ORDERED: MAGNESIUM SULF RIDER 2 GM in PREMIX 1 EACH IV STA (14:50)
[2018-07-19] MEDS: LACTATED RINGERS 1,000 ML IV SCH (14:54)
[2018-07-19] MEDS ORDERED: PROPOFOL 200 MG/20 ML VIAL IV ONE (16:09)
[2018-07-19] MEDS ORDERED: ONDANSETRON 4 MG/2 ML VIAL ONE (16:10)
[2018-07-19] MEDS ORDERED: MIDAZOLAM 2 MG/2 ML VIAL ONE (16:10)
[2018-07-19] MEDS ORDERED: SEVOFLURANE 1 UNIT/15 MINUTE INH ONE (16:10)
[2018-07-19] MEDS ORDERED: SUCCINYLCHOLINE 200 MG/10 ML VIAL ONE (16:10)
[2018-07-19] MEDS ORDERED: fentaNYL 100 MCG/2 ML VIAL ONE (16:10)
[2018-07-19] MEDS: FERROUS SULFATE 325 MG TABLET PO SCH ×2 (17:53→21:29)
[2018-07-19] MEDS: GABAPENTIN 300 MG CAPSULE PO SCH ×2 (17:54→20:27)
[2018-07-19] MEDS: CEFEPIME 1,000 MG in SODIUM CHLORIDE 0.9% 100 ML IV SCH ×2 (18:31→23:45)
[2018-07-19] MEDS: INSULIN LISPRO 100 UNIT/ML SUBCUT SCH ×2 (18:31→21:28)
[2018-07-19] MEDS: ENOXAPARIN 40 MG/0.4 ML SYRINGE SUBCUT SCH (18:31)
[2018-07-19] MEDS: ACETAMINOPHEN 325 MG TABLET PO PRN (19:11)
[2018-07-19] MEDS: metroNIDAZOLE INJ 500 MG in PREMIX 1 EACH IV SCH ×2 (19:14→23:45)
[2018-07-19] MEDS ORDERED: MAGNESIUM SULF RIDER 2 GM in PREMIX 1 EACH IV ONE (20:00)
[2018-07-19] MEDS: ASCORBIC ACID 500 MG TABLET PO SCH (20:27)
[2018-07-19] MEDS: CARVEDILOL 25 MG TABLET PO SCH (20:28)
[2018-07-19] MEDS: INSULIN GLARGINE 100 UNIT/ML SUBCUT SCH (21:29)
[2018-07-20] MEDS: VANCOMYCIN INJ 1,500 MG in SODIUM CHLORIDE 0.9% 500 ML IV SCH ×2 (02:23→15:43)
[2018-07-20 05:46] LABS: Calcium 8.8 MG/DL (8.5-10.1); Osmolality,Calculated 280.4 MOS/KG (273-304)
[2018-07-20 05:56] LABS: Basophils # 0.1 10*3/uL (0.0-0.2); Basophils % 0.7 % (0.0-0.8); Eosinophils # 0.2 10*3/uL (0.0-0.87); Eosinophils % 0.9 % (0.00-10.9); Immature Granulocytes % 1.1 %; Immature Granulocytes Absolute 0.18 #; Lymphocytes # 2.4 10*3/uL (1.4-4.0); Lymphocytes % 14.7 % (21.3-54.2); Mean Corpuscular HGB Conc 29.5 GM/DL (32-36); Mean Corpuscular Volume 85.9 FL (87-102); Mean Platelet Volume 9.1 FL (9.6-12.0); Monocytes % 7.8 % (1.7-12.7); Neutrophils % 74.8 % (38.7-73.9); Platelet Count 286 T/CUMM (130-400); Red Blood Count 4.74 MC/CUMM (3.8-5.5); White Blood Count 16.3 T/CUMM (4-12)
[2018-07-20 05:59] LABS: Hematocrit 40.5 VOL% (35.7-47.0); Hemoglobin 12.1 GM/DL (12.0-16.0)
[2018-07-20 06:07] LABS: Risk Ratio 5.61; VLDL CHOLESTEROL 40.8 MG/DL
[2018-07-20] MEDS: CEFEPIME 1,000 MG in SODIUM CHLORIDE 0.9% 100 ML IV SCH ×3 (07:02→19:09)
[2018-07-20] MEDS ORDERED: DEXTROSE 50% 25 GM/50 ML VIAL IV PRN (07:08)
[2018-07-20] MEDS ORDERED: GLUCAGON 1 MG VIAL IM PRN (07:08)
[2018-07-20] MEDS: PANTOPRAZOLE 40 MG TABLET PO SCH (08:47)
[2018-07-20] MEDS: metroNIDAZOLE INJ 500 MG in PREMIX 1 EACH IV SCH ×2 (08:47→17:56)
[2018-07-20] MEDS: CHOLECALCIFEROL 5,000 UNIT TABLET PO SCH (08:47)
[2018-07-20] MEDS: INSULIN LISPRO 100 UNIT/ML SUBCUT SCH ×4 (08:47→21:12)
[2018-07-20] MEDS: ASPIRIN EC 81 MG TABLET PO SCH (08:48)
[2018-07-20] MEDS: GABAPENTIN 300 MG CAPSULE PO SCH ×3 (08:48→21:15)
[2018-07-20] MEDS: CARVEDILOL 25 MG TABLET PO SCH ×2 (08:48→21:15)
[2018-07-20] MEDS: FERROUS SULFATE 325 MG TABLET PO SCH ×2 (08:48→21:15)
[2018-07-20] MEDS: ASCORBIC ACID 500 MG TABLET PO SCH ×2 (08:48→21:15)
[2018-07-20] MEDS ORDERED: NON-FORMULARY MEDICATION (Omeprazole 20 MG) PO SCH (09:00)
[2018-07-20] MEDS ORDERED: FUROSEMIDE 40 MG/4 ML VIAL IV ONE (09:59)
[2018-07-20] MEDS ORDERED: CYCLOBENZAPRINE 10 MG TABLET PO PRN (10:02)
[2018-07-20] MEDS: ACETAMINOPHEN 325 MG TABLET PO PRN ×2 (10:17→19:10)
[2018-07-20] MEDS: SPIRONOLACTONE 100 MG TABLET PO SCH (10:17)
[2018-07-20] MEDS: CLOPIDOGREL 75 MG TABLET PO SCH (10:17)
[2018-07-20] MEDS: LACTATED RINGERS 1,000 ML IV SCH (11:12)
[2018-07-20] MEDS: ALBUTEROL/IPRATROPIUM 3 ML NEB RESP TX SCH ×2 (14:58→18:53)
[2018-07-20] MEDS: ENOXAPARIN 40 MG/0.4 ML SYRINGE SUBCUT SCH (17:09)
[2018-07-20] MEDS ORDERED: MAGNESIUM CHLORIDE 64 MG TABLET PO SCH (21:00)
[2018-07-20] MEDS: INSULIN GLARGINE 100 UNIT/ML SUBCUT SCH (21:13)
[2018-07-21] MEDS: CEFEPIME 1,000 MG in SODIUM CHLORIDE 0.9% 100 ML IV SCH ×2 (00:25→05:09)
[2018-07-21] MEDS: ALBUTEROL/IPRATROPIUM 3 ML NEB RESP TX SCH ×2 (00:27→06:58)
[2018-07-21] MEDS: metroNIDAZOLE INJ 500 MG in PREMIX 1 EACH IV SCH ×2 (00:59→09:04)
[2018-07-21] MEDS: VANCOMYCIN INJ 1,500 MG in SODIUM CHLORIDE 0.9% 500 ML IV SCH (02:38)
[2018-07-21 05:04] LABS: Basophils # 0.1 10*3/uL (0.0-0.2); Basophils % 0.9 % (0.0-0.8); Eosinophils # 0.5 10*3/uL (0.0-0.87); Eosinophils % 3.6 % (0.00-10.9); Hematocrit 38.7 VOL% (35.7-47.0); Hemoglobin 11.7 GM/DL (12.0-16.0); Immature Granulocytes % 0.9 %; Immature Granulocytes Absolute 0.11 #; Lymphocytes # 2.9 10*3/uL (1.4-4.0); Lymphocytes % 22.7 % (21.3-54.2); Mean Corpuscular HGB Conc 30.2 GM/DL (32-36); Mean Corpuscular Volume 85.2 FL (87-102); Mean Platelet Volume 9.8 FL (9.6-12.0); Monocytes % 9.2 % (1.7-12.7); Neutrophils % 62.7 % (38.7-73.9); Platelet Count 276 T/CUMM (130-400); Red Blood Count 4.54 MC/CUMM (3.8-5.5); Red Cell Distribution Width 14.9 % (9.3-17.3); White Blood Count 12.9 T/CUMM (4-12)
[2018-07-21 05:11] LABS: Calcium 8.3 MG/DL (8.5-10.1)
[2018-07-21] MEDS: INSULIN LISPRO 100 UNIT/ML SUBCUT SCH (08:01)
[2018-07-21 08:17] VITALS: BP 153/75
[2018-07-21] MEDS ORDERED: ATORVASTATIN 10 MG TABLET PO SCH (09:00)
[2018-07-21] MEDS: SPIRONOLACTONE 100 MG TABLET PO SCH (09:05)
[2018-07-21] MEDS: CARVEDILOL 25 MG TABLET PO SCH (09:05)
[2018-07-21] MEDS: ASCORBIC ACID 500 MG TABLET PO SCH (09:05)
[2018-07-21] MEDS: PANTOPRAZOLE 40 MG TABLET PO SCH (09:05)
[2018-07-21] MEDS: CHOLECALCIFEROL 5,000 UNIT TABLET PO SCH (09:05)
[2018-07-21] MEDS: CLOPIDOGREL 75 MG TABLET PO SCH (09:06)
[2018-07-21] MEDS: FERROUS SULFATE 325 MG TABLET PO SCH (09:06)
[2018-07-21] MEDS: GABAPENTIN 300 MG CAPSULE PO SCH (09:06)
[2018-07-21] MEDS: ASPIRIN EC 81 MG TABLET PO SCH (09:06)
== END 2018-07-21 11:28 | disposition home or self-care (01) | DRG 299 ==
LOC: N.ED 10:43 → N.EDINP 12:41 → N.2E 17:46
PROVIDERS: ADMIT Emergency Medicine; ATTEND Emergency Medicine

== ENCOUNTER 2020-06-24 17:40 | Inpatient (IN) ==
[2020-06-24] MEDS ORDERED: SODIUM CHLORIDE 0.9% 1,000 ML IV STA (19:32)
[2020-06-24 20:20] LABS: Basophils # 0.1 10*3/uL (0.0-0.2); Basophils % 0.5 % (0.0-0.8); Eosinophils # 4.3 10*3/uL (0.0-0.87); Eosinophils % 16.1 % (0.00-10.9); Hematocrit 37.5 VOL% (35.7-47.0); Hemoglobin 11.2 GM/DL (12.0-16.0); Immature Granulocytes % 1.1 %; Immature Granulocytes Absolute 0.29 #; Lymphocytes % 18.6 % (21.3-54.2); Mean Corpuscular HGB Conc 29.9 GM/DL (32-36); Mean Corpuscular Volume 86.2 FL (87-102); Monocytes % 5.6 % (1.7-12.7); Neutrophils % 58.1 % (38.7-73.9); Platelet Count 415 T/CUMM (130-400); Red Blood Count 4.35 MC/CUMM (3.8-5.5); Red Cell Distribution Width 16.9 % (9.3-17.3); White Blood Count 26.7 T/CUMM (4-12)
[2020-06-24 20:20] LABS: Bacteria,Urine Occasional /HPF (Few); Bilirubin,Urine Negative (Negative); Blood, Urine Negative (Negative); Glucose,Urine (UA) Negative (Negative); Hyaline Casts,Urine 25 /LPF (0-3); Ketones,Urine Negative (Negative); Mucus,Urine Occasional /LPF (Occasional); Nitrite,Urine Negative (Negative); Protein,Urine Negative; RBC,Urine 3 /HPF (0-4); Squamous Epithelial Cell,Urine Occasional /HPF (0-10); Urine Appearance Slightly Hazy (Clear); Urine Color Yellow (Yellow); Urine Specific Gravity 1.009 (1.001-1.035); Urine Urobilinogen < 2.0 EU/DL (0.2-1.0)
[2020-06-24 20:39] LABS: Eosinophils 17 % (0-10); Lymphocytes 16 % (20-55); Nucleated Red Blood Cells 1 (0-5); Segmented Neutrophils 64 % (50-85); Total Cells Counted 100
[2020-06-24 20:40] LABS: Alanine Aminotransferase 18 U/L (13-56); Albumin 3.3 G/DL (3.4-5.0); Alkaline Phosphatase 146 U/L (45-117); Anisocytosis Slight; Aspartate Amino Transferase 9 U/L (0-37); Bilirubin,Total < 0.39 MG/DL (0.2-1.0); Blood Urea Nitrogen 50 MG/DL (7-18); Carbon Dioxide 20 MMOL/L (21-32); Estimated Glom Filtration Rate 31 ML/MIN; Glucose 113 MG/DL (74-106); Hypochromasia 1+; Microcytosis Slight; Osmolality,Calculated 283.1 MOS/KG (273-304); Platelet Estimate Increased; Potassium 5.1 MMOL/L (3.5-5.1); Sodium 135 MMOL/L (136-145); Total Protein 7.5 G/DL (6.4-8.2)
[2020-06-24] MEDS ORDERED: DEXTROSE 50% 25 GM/50 ML VIAL IV PRN (21:49)
[2020-06-24] MEDS ORDERED: ACETAMINOPHEN 325 MG TABLET PO PRN (21:49)
[2020-06-24] MEDS ORDERED: GLUCAGON 1 MG VIAL IM PRN (21:49)
[2020-06-24] MEDS ORDERED: ONDANSETRON 4 MG/2 ML VIAL IV PRN (21:49)
[2020-06-24] MEDS: SODIUM CHLORIDE 0.9% 1,000 ML IV SCH (22:04)
[2020-06-24] MEDS ORDERED: CYCLOBENZAPRINE 10 MG TABLET PO PRN (22:53)
[2020-06-25 04:50] LABS: Basophils # 0.1 10*3/uL (0.0-0.2); Basophils % 0.6 % (0.0-0.8); Eosinophils # 4.5 10*3/uL (0.0-0.87); Eosinophils % 19.1 % (0.00-10.9); Hematocrit 35.4 VOL% (35.7-47.0); Hemoglobin 10.5 GM/DL (12.0-16.0); Immature Granulocytes Absolute 0.24 #; Lymphocytes # 4.9 10*3/uL (1.4-4.0); Lymphocytes % 20.8 % (21.3-54.2); Mean Corpuscular HGB Conc 29.7 GM/DL (32-36); Mean Corpuscular Volume 87.2 FL (87-102); Mean Platelet Volume 9.3 FL (9.6-12.0); Monocytes % 5.5 % (1.7-12.7); Platelet Count 369 T/CUMM (130-400); Red Blood Count 4.06 MC/CUMM (3.8-5.5); Red Cell Distribution Width 16.8 % (9.3-17.3); White Blood Count 23.5 T/CUMM (4-12)
[2020-06-25 05:17] LABS: Albumin 2.9 G/DL (3.4-5.0); Bilirubin,Total 0.4 MG/DL (0.2-1.0); Calcium 8.7 MG/DL (8.5-10.1); Osmolality,Calculated 286.7 MOS/KG (273-304); Total Protein 6.7 G/DL (6.4-8.2)
[2020-06-25] MEDS: ENOXAPARIN 40 MG/0.4 ML SYRINGE SUBCUT SCH (06:33)
[2020-06-25 07:59] LABS: Band Neutrophils 1 % (0-10); Eosinophils 24 % (0-10); Lymphocytes 22 % (20-55); Segmented Neutrophils 51 % (50-85); Total Cells Counted 100
[2020-06-25 08:00] LABS: Hypochromasia 1+; Microcytosis 1+
[2020-06-25 08:01] LABS: Ovalocytes Slight
[2020-06-25 08:02] LABS: Platelet Estimate Normal
[2020-06-25] MEDS: INSULIN REGULAR 100 UNIT/ML SUBCUT SCH ×4 (08:38→22:30)
[2020-06-25] MEDS: SODIUM CHLORIDE 0.9% 1,000 ML IV SCH (08:58)
[2020-06-25] MEDS: CLOPIDOGREL 75 MG TABLET PO SCH (09:47)
[2020-06-25] MEDS: GABAPENTIN 300 MG CAPSULE PO SCH ×3 (09:47→21:12)
[2020-06-25] MEDS: PANTOPRAZOLE 40 MG TABLET PO SCH (09:48)
[2020-06-25] MEDS: carvediloL 25 MG TABLET PO SCH ×2 (09:48→21:12)
[2020-06-25] MEDS: LACTATED RINGERS 1,000 ML IV SCH ×2 (09:49→18:08)
[2020-06-26] MEDS: LACTATED RINGERS 1,000 ML IV SCH ×2 (01:14→09:27)
[2020-06-26] MEDS: ENOXAPARIN 40 MG/0.4 ML SYRINGE SUBCUT SCH (06:24)
[2020-06-26 06:43] LABS: Basophils # 0.2 10*3/uL (0.0-0.2); Eosinophils # 3.7 10*3/uL (0.0-0.87); Eosinophils % 22.7 % (0.00-10.9); Hemoglobin 10.4 GM/DL (12.0-16.0); Immature Granulocytes % 0.7 %; Immature Granulocytes Absolute 0.11 #; Lymphocytes # 3.7 10*3/uL (1.4-4.0); Lymphocytes % 22.2 % (21.3-54.2); Mean Corpuscular HGB Conc 30.6 GM/DL (32-36); Mean Corpuscular Volume 84.4 FL (87-102); Mean Platelet Volume 9.2 FL (9.6-12.0); Monocytes % 5.7 % (1.7-12.7); Neutrophils % 47.7 % (38.7-73.9); Platelet Count 354 T/CUMM (130-400); Red Blood Count 4.03 MC/CUMM (3.8-5.5); White Blood Count 16.5 T/CUMM (4-12)
[2020-06-26 07:08] LABS: Osmolality,Calculated 290.8 MOS/KG (273-304); Potassium 4.8 MMOL/L (3.5-5.1)
[2020-06-26 07:11] LABS: Band Neutrophils 1 % (0-10); Eosinophils 20 % (0-10); Hypochromasia 1+; Lymphocytes 22 % (20-55); Microcytosis 1+; Platelet Estimate Normal; Segmented Neutrophils 52 % (50-85); Total Cells Counted 100
[2020-06-26] MEDS: INSULIN REGULAR 100 UNIT/ML SUBCUT SCH ×3 (08:18→16:12)
[2020-06-26] MEDS: PANTOPRAZOLE 40 MG TABLET PO SCH (11:10)
[2020-06-26] MEDS: CLOPIDOGREL 75 MG TABLET PO SCH (11:10)
[2020-06-26] MEDS: carvediloL 25 MG TABLET PO SCH (11:11)
[2020-06-26] MEDS: GABAPENTIN 300 MG CAPSULE PO SCH ×2 (11:11→15:16)
[2020-06-26 16:41] VITALS: BP 144/68
[2020-06-27] MEDS ORDERED: ATORVASTATIN 10 MG TABLET PO SCH (22:53)
== END 2020-06-26 18:05 | disposition home or self-care (01) | DRG 683 ==
LOC: N.ED 17:40 → N.EDINP 23:19 → N.TELEN 06-25 01:53
PROVIDERS: ADMIT Internal Medicine; ATTEND Internal Medicine

== ENCOUNTER 2020-12-22 23:16 | Inpatient (IN) ==
[2020-12-23 00:44] LABS: Basophils # 0.1 10*3/uL (0.0-0.2); Basophils % 0.6 % (0.0-0.8); Eosinophils # 0.2 10*3/uL (0.0-0.87); Hematocrit 24.6 VOL% (35.7-47.0); Hemoglobin 7.3 GM/DL (12.0-16.0); Immature Granulocytes % 0.6 %; Immature Granulocytes Absolute 0.06 #; Lymphocytes # 2.7 10*3/uL (1.4-4.0); Lymphocytes % 24.3 % (21.3-54.2); Mean Corpuscular HGB Conc 29.7 GM/DL (32-36); Mean Corpuscular Volume 87.2 FL (87-102); Mean Platelet Volume 9.7 FL (9.6-12.0); Monocytes % 9.4 % (1.7-12.7); Neutrophils % 63.1 % (38.7-73.9); Platelet Count 425 T/CUMM (130-400); Red Blood Count 2.82 MC/CUMM (3.8-5.5); Red Cell Distribution Width 14.3 % (9.3-17.3); White Blood Count 10.9 T/CUMM (4-12)
[2020-12-23 00:52] LABS: Alanine Aminotransferase 17 U/L (13-56); Albumin 3.6 G/DL (3.4-5.0); Alkaline Phosphatase 123 U/L (45-117); Aspartate Amino Transferase 11 U/L (0-37); Bilirubin,Total < 0.39 MG/DL (0.20-1.00); Blood Urea Nitrogen 39 MG/DL (7-18); Carbon Dioxide 26 MMOL/L (21-32); Estimated Glom Filtration Rate 49 ML/MIN; Glucose 280 MG/DL (74-106); Osmolality,Calculated 288.1 MOS/KG (273-304); Potassium 5.4 MMOL/L (3.5-5.1); Sodium 135 MMOL/L (136-145); Total Protein 6.7 G/DL (6.4-8.2)
[2020-12-23] MEDS ORDERED: PANTOPRAZOLE INJ 80 MG in SODIUM CHLORIDE 0.9% 100 ML IV ONE (00:54)
[2020-12-23] MEDS ORDERED: ACETAMINOPHEN 325 MG TABLET PO PRN (01:16)
[2020-12-23] MEDS ORDERED: GLUCAGON 1 MG VIAL IM PRN (01:16)
[2020-12-23] MEDS ORDERED: DEXTROSE 50% 25 GM/50 ML VIAL IV PRN (01:16)
[2020-12-23] MEDS ORDERED: SODIUM CHLORIDE 0.9% 1,000 ML IV PRN (01:37)
[2020-12-23] MEDS ORDERED: SODIUM POLYSTYRENE SULFATE 15 GM/60 ML BOTTLE PO STA (01:39)
[2020-12-23] MEDS: PANTOPRAZOLE INJ 200 MG in SODIUM CHLORIDE 0.9% 250 ML IV SCH (02:11)
[2020-12-23] MEDS ORDERED: INFLUENZA VIRUS VACCINE 0.5 ML SYRINGE IM ONE (04:42)
[2020-12-23] MEDS: INSULIN REGULAR 100 UNIT/ML SUBCUT SCH ×4 (08:15→22:17)
[2020-12-23 08:40] LABS: Hematocrit 27.5 VOL% (35.7-47.0); Hemoglobin 8.2 GM/DL (12.0-16.0)
[2020-12-23 09:10] LABS: Albumin 3.4 G/DL (3.4-5.0); Bilirubin,Total 1.3 MG/DL (0.20-1.00); Calcium 8.9 MG/DL (8.5-10.1); Osmolality,Calculated 289.7 MOS/KG (273-304); Potassium 5.1 MMOL/L (3.5-5.1)
[2020-12-23 13:07] LABS: Hemoglobin 8.5 GM/DL (12.0-16.0)
[2020-12-23] MEDS: TRIAMCINOLONE 0.025% CREAM 15 GM TUBE TOP SCH (15:50)
[2020-12-23 19:29] LABS: Hematocrit 29.7 VOL% (35.7-47.0); Hemoglobin 9.1 GM/DL (12.0-16.0)
[2020-12-23] MEDS ORDERED: INSULIN GLARGINE 100 UNIT/ML SUBCUT SCH (21:00)
[2020-12-23] MEDS ORDERED: COENZYME Q10 100 MG CAPSULE PO SCH (21:30)
[2020-12-23] MEDS ORDERED: CYCLOBENZAPRINE 10 MG TABLET PO SCH (21:30)
[2020-12-23] MEDS: GABAPENTIN 600 MG TABLET PO SCH (22:16)
[2020-12-24] MEDS: PANTOPRAZOLE INJ 200 MG in SODIUM CHLORIDE 0.9% 250 ML IV SCH (03:54)
[2020-12-24] MEDS ORDERED: LACTATED RINGERS 1,000 ML IV SCH (06:30)
[2020-12-24 06:39] LABS: Basophils # 0.1 10*3/uL (0.0-0.2); Basophils % 0.7 % (0.0-0.8); Eosinophils # 0.2 10*3/uL (0.0-0.87); Eosinophils % 2.3 % (0.00-10.9); Hematocrit 30.7 VOL% (35.7-47.0); Hemoglobin 9.1 GM/DL (12.0-16.0); Immature Granulocytes % 0.7 %; Immature Granulocytes Absolute 0.07 #; Lymphocytes # 3.2 10*3/uL (1.4-4.0); Lymphocytes % 31.4 % (21.3-54.2); Mean Corpuscular HGB Conc 29.6 GM/DL (32-36); Mean Corpuscular Volume 87.2 FL (87-102); Mean Platelet Volume 9.7 FL (9.6-12.0); Neutrophils % 53.9 % (38.7-73.9); Platelet Count 410 T/CUMM (130-400); Red Cell Distribution Width 14.6 % (9.3-17.3); White Blood Count 10.2 T/CUMM (4-12)
[2020-12-24 06:59] LABS: Red Blood Count 3.52 MC/CUMM (3.8-5.5)
[2020-12-24 07:07] LABS: Calcium 9.2 MG/DL (8.5-10.1); Osmolality,Calculated 292.3 MOS/KG (273-304); Potassium 5.2 MMOL/L (3.5-5.1)
[2020-12-24] MEDS ORDERED: ETOMIDATE 20 MG/10 ML VIAL IV ONE (07:33)
[2020-12-24] MEDS ORDERED: LIDOCAINE 2% 5 ML VIAL ONE (07:33)
[2020-12-24] MEDS ORDERED: propofoL 200 MG/20 ML VIAL IV ONE (07:33)
[2020-12-24] MEDS ORDERED: carvediloL 25 MG TABLET PO SCH (08:00)
[2020-12-24] MEDS ORDERED: DOCUSATE SODIUM 100 MG CAPSULE PO SCH (09:00)
[2020-12-24] MEDS ORDERED: FUROSEMIDE 40 MG TABLET PO SCH (09:00)
[2020-12-24] MEDS ORDERED: LOSARTAN 50 MG TABLET PO SCH (09:00)
[2020-12-24] MEDS ORDERED: EZETIMIBE 10 MG TABLET PO SCH (09:00)
[2020-12-24] MEDS ORDERED: SPIRONOLACTONE 100 MG TABLET PO SCH (09:00)
[2020-12-24] MEDS ORDERED: ASCORBIC ACID 500 MG TABLET PO SCH (09:00)
[2020-12-24] MEDS: INSULIN REGULAR 100 UNIT/ML SUBCUT SCH ×2 (09:32→12:58)
[2020-12-24] MEDS: INSULIN LISPRO 100 UNIT/ML SUBCUT SCH ×2 (09:33→12:58)
[2020-12-24] MEDS: TRIAMCINOLONE 0.025% CREAM 15 GM TUBE TOP SCH (09:34)
[2020-12-24] MEDS: GABAPENTIN 600 MG TABLET PO SCH (09:34)
[2020-12-24 11:38] VITALS: BP 127/47
[2020-12-24] MEDS ORDERED: CHOLECALCIFEROL 1,000 UNIT TABLET PO SCH (21:00)
[2020-12-24] MEDS ORDERED: INSULIN GLARGINE 100 UNIT/ML SUBCUT SCH (21:00)
[2020-12-24] MEDS ORDERED: MAGNESIUM GLUCONATE 500 MG TABLET PO SCH (21:00)
[2020-12-25] MEDS ORDERED: ROSUVASTATIN 20 MG TABLET PO SCH (21:00)
== END 2020-12-24 15:15 | disposition home or self-care (01) | DRG 661 ==
LOC: N.ED 23:16 → SUATTDRO 12-23 01:46 → N.EDINP 12-23 01:46 → INTOOBSV 12-23 01:46 → OBSVTOIN 12-23 01:46 → N.3E 12-23 03:41
PROVIDERS: ADMIT Internal Medicine; ATTEND Internal Medicine

== ENCOUNTER 2021-04-07 19:08 | Inpatient (IN) ==
[2021-04-07] MEDS ORDERED: methylPREDNISolone SOD SUC 125 MG/2 ML VIAL ONE (19:13)
[2021-04-07] MEDS ORDERED: FAMOTIDINE 20 MG/2 ML VIAL IV ONE (19:16)
[2021-04-07] MEDS ORDERED: PIPERACILLIN/TAZOBACTAM 3,375 MG in SODIUM CHLORIDE 0.9% 100 ML IV STA (19:35)
[2021-04-07] MEDS ORDERED: LACTATED RINGERS 1,000 ML IV ONE (19:35)
[2021-04-07] MEDS ORDERED: methylPREDNISolone SOD SUC 125 MG/2 ML VIAL IV STA (19:35)
[2021-04-07] MEDS ORDERED: ALBUTEROL NEB SOLN 5 MG/ML 20 ML/BOTTLE ONE (19:36)
[2021-04-07] MEDS ORDERED: FAMOTIDINE 20 MG/2 ML VIAL IV STA (19:39)
[2021-04-07] MEDS ORDERED: NOREPINEPHRINE 16 MG in SODIUM CHLORIDE 0.9% 234 ML IV PRN (19:39)
[2021-04-07] MEDS ORDERED: ALBUTEROL NEB SOLN 5 MG/ML 20 ML/BOTTLE CONT NEB STA (19:39)
[2021-04-07] MEDS ORDERED: RACEPINEPHRINE 0.5 ML NEB RESP TX ONE (19:52)
[2021-04-07] MEDS ORDERED: RACEPINEPHRINE 0.5 ML NEB RESP TX STA (19:58)
[2021-04-07 20:13] LABS: Bacteria,Urine Occasional /HPF (Few); Bilirubin,Urine Negative (Negative); Blood, Urine Negative (Negative); Glucose,Urine (UA) >=500 mg/dL (Negative); Hyaline Casts,Urine 20 /LPF (0-3); Ketones,Urine 5 mg/dL (Negative); Mucus,Urine Occasional /LPF (Occasional); Nitrite,Urine Negative (Negative); Protein,Urine 100 MG/DL; RBC,Urine 2 /HPF (0-4); Squamous Epithelial Cell,Urine Occasional /HPF (0-10); Urine Appearance Slightly Hazy (Clear); Urine Color Yellow (Yellow); Urine Specific Gravity 1.018 (1.001-1.035); Urine Urobilinogen < 2.0 EU/DL (<2.0)
[2021-04-07 20:14] LABS: ABG Base Excess -17.5 MMOL/L (-2.5-2.5); ABG Oxygen Saturation 98.6 % (95-100); ABG PCO2 37.6 MM HG (35-48); ABG TCO2 10.9 MMOL/L (23-27)
[2021-04-07 20:16] LABS: ABG PH 7.119 (7.35-7.45)
[2021-04-07] MEDS ORDERED: SODIUM BICARBONATE 50 MEQ/50 ML VIAL IV STA (20:25)
[2021-04-07 20:29] LABS: Alanine Aminotransferase 44 U/L (13-56); Albumin 2.9 G/DL (3.4-5.0); Alkaline Phosphatase 122 U/L (45-117); Aspartate Amino Transferase 62 U/L (0-37); Bilirubin,Total < 0.39 MG/DL (0.20-1.00); Blood Urea Nitrogen 30 MG/DL (7-18); CKMB % 3.4 %; Calcium 8.5 MG/DL (8.5-10.1); Carbon Dioxide 18 MMOL/L (21-32); Estimated Glom Filtration Rate 31 ML/MIN; Glucose 484 MG/DL (74-106); Osmolality,Calculated 301.7 MOS/KG (273-304); Potassium 5.4 MMOL/L (3.5-5.1); Sodium 138 MMOL/L (136-145); Total Protein 6.9 G/DL (6.4-8.2)
[2021-04-07 20:30] LABS: Basophils # 0.2 10*3/uL (0.0-0.2); Basophils % 0.4 % (0.0-0.8); Eosinophils # 0.1 10*3/uL (0.0-0.87); Eosinophils % 0.3 % (0.00-10.9); Hematocrit 56.7 VOL% (35.7-47.0); Hemoglobin 16.6 GM/DL (12.0-16.0); Immature Granulocytes % 3.8 %; Immature Granulocytes Absolute 1.36 #; Lymphocytes # 10.4 10*3/uL (1.4-4.0); Lymphocytes % 28.8 % (21.3-54.2); Mean Corpuscular HGB Conc 29.3 GM/DL (32-36); Mean Corpuscular Volume 90.3 FL (87-102); Mean Platelet Volume 9.8 FL (9.6-12.0); Monocytes % 5.1 % (1.7-12.7); NRBC # 0.02 10*3/uL; Neutrophils % 61.6 % (38.7-73.9); Platelet Count 539 T/CUMM (130-400); Red Blood Count 6.28 MC/CUMM (3.8-5.5); Red Cell Distribution Width 13.4 % (9.3-17.3); White Blood Count 36.1 T/CUMM (4-12)
[2021-04-07] MEDS ORDERED: SODIUM CHLORIDE 0.9% 1,000 ML IV STA (20:37)
[2021-04-07] MEDS ORDERED: INSULIN REGULAR 100 UNIT/ML IV STA (20:43)
[2021-04-07] MEDS ORDERED: FOSPHENYTOIN 1,000 MG.PE in SODIUM CHLORIDE 0.9% 250 ML IV STA (20:57)
[2021-04-07] MEDS ORDERED: levETIRAcetam 500 MG/5 ML VIAL IV ONE (21:08)
[2021-04-07] MEDS ORDERED: MIDAZOLAM 2 MG/2 ML VIAL ONE (21:12)
[2021-04-07 21:18] LABS: INR 1.1; PT Patient Result 12.6 SECS (10.5-12.0)
[2021-04-07 21:23] LABS: Band Neutrophils 7 % (0-10); Lymphocytes 25 % (20-55); Myelocytes 1 %; Segmented Neutrophils 64 % (50-85); Total Cells Counted 100
[2021-04-07 21:24] LABS: Platelet Estimate Increased
[2021-04-07] MEDS ORDERED: ALBUTEROL 2.5 MG/3 ML NEB RESP TX PRN (21:24)
[2021-04-07] MEDS ORDERED: RACEPINEPHRINE 0.5 ML NEB RESP TX PRN (21:26)
[2021-04-07] MEDS ORDERED: ONDANSETRON 4 MG/2 ML VIAL IV PRN (21:26)
[2021-04-07] MEDS ORDERED: LACTATED RINGERS 1,000 ML IV SCH (21:30)
[2021-04-07] MEDS ORDERED: DEXTROSE 10% 250 ML BAG IV PRN (21:36)
[2021-04-07] MEDS ORDERED: GLUCAGON 1 MG VIAL IM PRN (21:36)
[2021-04-07 21:39] LABS: Barbiturates Screen,Urine Negative (Negative); Benzodiazepines Screen,Urine Negative (Negative); Cannabinoid Screen,Urine Negative (Negative); Opiate Screen,Urine Positive (Negative); Phencyclidine Screen,Urine Negative (Negative)
[2021-04-07] MEDS: MIDAZOLAM 100 MG in SODIUM CHLORIDE 0.9% 80 ML IV PRN (21:40)
[2021-04-07 21:47] LABS: Acetaminophen < 2.0 UG/ML (10-30); Salicylate < 2.8 MG/DL (2.8-20)
[2021-04-07 22:11] LABS: ABG Base Excess -8.1 MMOL/L (-2.5-2.5); ABG PCO2 39.4 MM HG (35-48); ABG PH 7.277 (7.35-7.45); ABG TCO2 15.8 MMOL/L (23-27)
[2021-04-07] MEDS ORDERED: LORazepam 2 MG/1 ML VIAL ONE (22:28)
[2021-04-07] MEDS ORDERED: LORazepam 2 MG/1 ML VIAL IV ONE (22:28)
[2021-04-07 22:55] LABS: Partial Thromboplastin Time 27.7 SECS (23.8-32.1)
[2021-04-07] MEDS: SODIUM CHLORIDE 0.9% 1,000 ML IV SCH (23:00)
[2021-04-07] MEDS: fentaNYL INJ 1,250 MCG in SODIUM CHLORIDE 0.9% 225 ML IV PRN (23:20)
[2021-04-07] MEDS ORDERED: CISATRACURIUM 10 MG/5 ML VIAL IV PRN (23:57)
[2021-04-08] MEDS ORDERED: INSULIN REGULAR 100 UNIT/ML IV SCH
[2021-04-08] MEDS ORDERED: INSULIN REGULAR 100 UNIT/ML SUBCUT SCH
[2021-04-08] MEDS: INSULIN REGULAR DRIP 100 ML IV PRN ×3 (00:29→16:56)
[2021-04-08 00:30] LABS: ABG HCO3 13.6 MMOL/L (20-26); ABG Oxygen Saturation 99.3 % (95-100); ABG PCO2 22.8 MM HG (35-48); ABG PH 7.395 (7.35-7.45); ABG PO2 267.9 MM HG (80-95); ABG TCO2 14.3 MMOL/L (23-27)
[2021-04-08] MEDS: ALBUTEROL/IPRATROPIUM 3 ML NEB RESP TX SCH ×4 (00:31→19:21)
[2021-04-08] MEDS: CISATRACURIUM IV PRN ×4 (00:45→10:59)
[2021-04-08 00:52] LABS: Calcium 7.7 MG/DL (8.5-10.1); Osmolality,Calculated 299.1 MOS/KG (273-304); Potassium 5.8 MMOL/L (3.5-5.1)
[2021-04-08 01:00] LABS: Basophils # 0.1 10*3/uL (0.0-0.2); Basophils % 0.2 % (0.0-0.8); Hematocrit 47.2 VOL% (35.7-47.0); Hemoglobin 14.8 GM/DL (12.0-16.0); Immature Granulocytes % 2.1 %; Lymphocytes % 3.6 % (21.3-54.2); Mean Corpuscular HGB Conc 31.4 GM/DL (32-36); Mean Corpuscular Volume 85.2 FL (87-102); Mean Platelet Volume 9.9 FL (9.6-12.0); Monocytes % 4.3 % (1.7-12.7); Neutrophils % 89.8 % (38.7-73.9); Platelet Count 451 T/CUMM (130-400); Red Blood Count 5.54 MC/CUMM (3.8-5.5); Red Cell Distribution Width 13.3 % (9.3-17.3); White Blood Count 28.6 T/CUMM (4-12)
[2021-04-08] MEDS: ENOXAPARIN 40 MG/0.4 ML SYRINGE SUBCUT SCH ×2 (01:07→21:16)
[2021-04-08] MEDS: methylPREDNISolone SOD SUC 40 MG/1 ML VIAL IV SCH ×4 (01:09→17:47)
[2021-04-08 01:48] LABS: Lymphocytes 2 % (20-55); Platelet Estimate Increased; Segmented Neutrophils 93 % (50-85); Total Cells Counted 100
[2021-04-08] MEDS ORDERED: PIPERACILLIN/TAZOBACTAM 3,375 MG in SODIUM CHLORIDE 0.9% 100 ML IV SCH (03:30)
[2021-04-08 04:38] LABS: ABG Base Excess -10.6 MMOL/L (-2.5-2.5); ABG HCO3 12.4 MMOL/L (20-26); ABG Oxygen Saturation 99.3 % (95-100); ABG PCO2 22.3 MM HG (35-48); ABG PH 7.364 (7.35-7.45); ABG PO2 241.4 MM HG (80-95); ABG TCO2 13.1 MMOL/L (23-27)
[2021-04-08 04:44] LABS: Basophils % 0.2 % (0.0-0.8); Eosinophils % 0.1 % (0.00-10.9); Hematocrit 46.8 VOL% (35.7-47.0); Hemoglobin 14.5 GM/DL (12.0-16.0); Lymphocytes # 1.2 10*3/uL (1.4-4.0); Mean Corpuscular Volume 85.2 FL (87-102); Mean Platelet Volume 9.4 FL (9.6-12.0); Monocytes % 2.3 % (1.7-12.7); Neutrophils % 90.4 % (38.7-73.9); Platelet Count 365 T/CUMM (130-400); Red Blood Count 5.49 MC/CUMM (3.8-5.5); Red Cell Distribution Width 13.3 % (9.3-17.3); White Blood Count 20.4 T/CUMM (4-12)
[2021-04-08 05:05] LABS: Albumin 2.5 G/DL (3.4-5.0); Bilirubin,Total 1.2 MG/DL (0.20-1.00); Calcium 7.6 MG/DL (8.5-10.1); Potassium 3.5 MMOL/L (3.5-5.1); Total Protein 6.1 G/DL (6.4-8.2)
[2021-04-08 05:14] LABS: Band Neutrophils 6 % (0-10); Lymphocytes 6 % (20-55); Segmented Neutrophils 86 % (50-85); Total Cells Counted 100
[2021-04-08 05:15] LABS: Microcytosis Slight; Platelet Estimate Normal
[2021-04-08] MEDS: MIDAZOLAM 100 MG in SODIUM CHLORIDE 0.9% 80 ML IV PRN ×3 (06:10→23:52)
[2021-04-08] MEDS: SODIUM CHLORIDE 0.9% 1,000 ML IV SCH ×2 (06:12→16:12)
[2021-04-08] MEDS: FAMOTIDINE 20 MG/2 ML VIAL IV SCH ×2 (09:31→21:03)
[2021-04-08] MEDS: MEROPENEM 500 MG in SODIUM CHLORIDE 0.9% 100 ML IV SCH ×3 (09:31→21:02)
[2021-04-08] MEDS: MINERAL OIL/PETROLATUM OPH OINT 3.5 GM TUBE BOTH EYES SCH ×3 (09:32→21:03)
[2021-04-08 10:07] LABS: Basophils % 0.2 % (0.0-0.8); Eosinophils % 0.2 % (0.00-10.9); Hematocrit 42.5 VOL% (35.7-47.0); Hemoglobin 13.1 GM/DL (12.0-16.0); Immature Granulocytes % 0.8 %; Immature Granulocytes Absolute 0.16 #; Lymphocytes # 1.6 10*3/uL (1.4-4.0); Mean Corpuscular HGB Conc 30.8 GM/DL (32-36); Mean Platelet Volume 9.6 FL (9.6-12.0); Monocytes % 3.5 % (1.7-12.7); Neutrophils % 87.3 % (38.7-73.9); Platelet Count 330 T/CUMM (130-400); Red Cell Distribution Width 13.3 % (9.3-17.3); White Blood Count 19.5 T/CUMM (4-12)
[2021-04-08 10:17] LABS: INR 1.1; Partial Thromboplastin Time 31.5 SECS (23.8-32.1)
[2021-04-08 10:26] LABS: Alanine Aminotransferase 35 U/L (13-56); Albumin 2.3 G/DL (3.4-5.0); Alkaline Phosphatase 78 U/L (45-117); Aspartate Amino Transferase 32 U/L (0-37); Bilirubin,Total < 0.39 MG/DL (0.20-1.00); Blood Urea Nitrogen 29 MG/DL (7-18); Calcium 7.7 MG/DL (8.5-10.1); Carbon Dioxide 15 MMOL/L (21-32); Estimated Glom Filtration Rate 75 ML/MIN; Glucose 269 MG/DL (74-106); Sodium 143 MMOL/L (136-145); Total Protein 5.7 G/DL (6.4-8.2)
[2021-04-08 10:31] LABS: Band Neutrophils 8 % (0-10); Hypochromia 1+; Lymphocytes 10 % (20-55); Microcytosis 1+; Segmented Neutrophils 77 % (50-85); Total Cells Counted 100
[2021-04-08 10:33] LABS: CKMB % 5.4 %
[2021-04-08 10:36] LABS: High Sensitive Troponin I* 229.6 ng/L (0-54)
[2021-04-08] MEDS ORDERED: POTASSIUM CHLORIDE RIDER 20 MEQ/100 ML PREMIX IV PRN (10:42)
[2021-04-08] MEDS ORDERED: MAGNESIUM SULF RIDER 1 GM/100 ML PREMIX IV PRN (10:42)
[2021-04-08] MEDS: ASPIRIN CHEW 81 MG TABLET PO SCH (11:32)
[2021-04-08] MEDS: metroNIDAZOLE INJ 500 MG/100 ML PREMIX IV SCH ×2 (11:41→17:46)
[2021-04-08] MEDS ORDERED: POTASSIUM PHOSPHATE 30 MMOL in SODIUM CHLORIDE 0.9% 250 ML IV ONE (12:00)
[2021-04-08] MEDS: fentaNYL INJ 1,250 MCG in SODIUM CHLORIDE 0.9% 225 ML IV PRN ×2 (13:00→19:54)
[2021-04-08 16:00] LABS: Basophils % 0.1 % (0.0-0.8); Eosinophils % 0.1 % (0.00-10.9); Hematocrit 38.8 VOL% (35.7-47.0); Hemoglobin 12.2 GM/DL (12.0-16.0); Immature Granulocytes % 0.8 %; Immature Granulocytes Absolute 0.13 #; Lymphocytes # 1.2 10*3/uL (1.4-4.0); Lymphocytes % 7.7 % (21.3-54.2); Mean Corpuscular HGB Conc 31.4 GM/DL (32-36); Mean Corpuscular Volume 85.3 FL (87-102); Mean Platelet Volume 9.4 FL (9.6-12.0); Monocytes % 3.5 % (1.7-12.7); Neutrophils % 87.8 % (38.7-73.9); Platelet Count 305 T/CUMM (130-400); Red Blood Count 4.55 MC/CUMM (3.8-5.5); Red Cell Distribution Width 13.4 % (9.3-17.3); White Blood Count 15.6 T/CUMM (4-12)
[2021-04-08 16:10] LABS: INR 1.1; PT Patient Result 11.9 SECS (10.5-12.0); Partial Thromboplastin Time 31.6 SECS (23.8-32.1)
[2021-04-08 16:22] LABS: Alanine Aminotransferase 33 U/L (13-56); Albumin 2.1 G/DL (3.4-5.0); Alkaline Phosphatase 67 U/L (45-117); Aspartate Amino Transferase 32 U/L (0-37); Bilirubin,Total < 0.39 MG/DL (0.20-1.00); Blood Urea Nitrogen 28 MG/DL (7-18); Calcium 7.5 MG/DL (8.5-10.1); Carbon Dioxide 17 MMOL/L (21-32); Estimated Glom Filtration Rate 86 ML/MIN; Glucose 180 MG/DL (74-106); Osmolality,Calculated 298.7 MOS/KG (273-304); Potassium 3.2 MMOL/L (3.5-5.1); Sodium 145 MMOL/L (136-145); Total Protein 5.3 G/DL (6.4-8.2)
[2021-04-08 17:15] LABS: Lymphocytes 7 % (20-55); Platelet Estimate Normal; Segmented Neutrophils 92 % (50-85); Total Cells Counted 100
[2021-04-08 17:31] LABS: CKMB % 6.9 %
[2021-04-08 17:44] LABS: High Sensitive Troponin I* 164.7 ng/L (0-54)
[2021-04-08] MEDS ORDERED: PHENYLEPHRINE DRIP 40 MG/250 ML PREMIX IV PRN (20:34)
[2021-04-08] MEDS: ROSUVASTATIN 20 MG TABLET NG SCH (20:46)
[2021-04-08] MEDS: DEXTROSE 5% 1,000 ML IV SCH (20:48)
[2021-04-08 22:21] LABS: Basophils % 0.1 % (0.0-0.8); Eosinophils % 0.1 % (0.00-10.9); Hematocrit 36.7 VOL% (35.7-47.0); Hemoglobin 11.6 GM/DL (12.0-16.0); Immature Granulocytes % 0.7 %; Immature Granulocytes Absolute 0.14 #; Lymphocytes # 1.4 10*3/uL (1.4-4.0); Mean Corpuscular HGB Conc 31.6 GM/DL (32-36); Mean Corpuscular Volume 84.2 FL (87-102); Mean Platelet Volume 9.8 FL (9.6-12.0); Monocytes % 5.2 % (1.7-12.7); Neutrophils % 86.9 % (38.7-73.9); Platelet Count 330 T/CUMM (130-400); Red Blood Count 4.36 MC/CUMM (3.8-5.5); Red Cell Distribution Width 13.5 % (9.3-17.3); White Blood Count 19.2 T/CUMM (4-12)
[2021-04-08 22:31] LABS: INR 1.1; PT Patient Result 11.8 SECS (10.5-12.0); Partial Thromboplastin Time 33.5 SECS (23.8-32.1)
[2021-04-08 22:53] LABS: CKMB % 5.7 %
[2021-04-08 22:56] LABS: High Sensitive Troponin I* 137.3 ng/L (0-54)
[2021-04-08 22:57] LABS: Alanine Aminotransferase 31 U/L (13-56); Alkaline Phosphatase 64 U/L (45-117); Aspartate Amino Transferase 43 U/L (0-37); Bilirubin,Total < 0.39 MG/DL (0.20-1.00); Blood Urea Nitrogen 28 MG/DL (7-18); Calcium 6.9 MG/DL (8.5-10.1); Carbon Dioxide 15 MMOL/L (21-32); Estimated Glom Filtration Rate 86 ML/MIN; Glucose 206 MG/DL (74-106); Osmolality,Calculated 303.4 MOS/KG (273-304); Potassium 4.2 MMOL/L (3.5-5.1); Sodium 147 MMOL/L (136-145); Total Protein 5.2 G/DL (6.4-8.2)
[2021-04-08 23:28] LABS: Lymphocytes 5 % (20-55); Platelet Estimate Increased; Segmented Neutrophils 93 % (50-85); Total Cells Counted 100
[2021-04-08 23:29] LABS: Acanthocytes 1+
[2021-04-09 00:01] LABS: Bilirubin,Urine Negative (Negative); Blood, Urine Moderate mg/dL (Negative); Calcium Oxalate Crystals,Urine Occasional /HPF (Few); Glucose,Urine (UA) >=500 mg/dL (Negative); Ketones,Urine 20 mg/dL (Negative); Mucus,Urine Occasional /LPF (Occasional); Nitrite,Urine Negative (Negative); Protein,Urine Negative; RBC,Urine 43 /HPF (0-4); Urine Appearance CLOUDY (Clear); Urine Color Yellow (Yellow); Urine Specific Gravity 1.021 (1.001-1.035); Urine Urobilinogen < 2.0 EU/DL (<2.0)
[2021-04-09] MEDS: MIDAZOLAM 100 MG in SODIUM CHLORIDE 0.9% 80 ML IV PRN ×3 (00:16→18:02)
[2021-04-09] MEDS: methylPREDNISolone SOD SUC 40 MG/1 ML VIAL IV SCH ×4 (00:28→18:06)
[2021-04-09] MEDS: ALBUTEROL/IPRATROPIUM 3 ML NEB RESP TX SCH ×4 (00:45→20:21)
[2021-04-09] MEDS: metroNIDAZOLE INJ 500 MG/100 ML PREMIX IV SCH ×3 (01:11→17:55)
[2021-04-09] MEDS: SODIUM CHLORIDE 0.9% 1,000 ML IV SCH ×2 (01:12→11:50)
[2021-04-09] MEDS: MEROPENEM 500 MG in SODIUM CHLORIDE 0.9% 100 ML IV SCH ×4 (02:06→21:06)
[2021-04-09] MEDS: fentaNYL INJ 1,250 MCG in SODIUM CHLORIDE 0.9% 225 ML IV PRN ×3 (03:35→18:39)
[2021-04-09 03:41] LABS: ABG HCO3 14.8 MMOL/L (20-26); ABG Oxygen Saturation 97.1 % (95-100); ABG PCO2 23.4 MM HG (35-48); ABG PH 7.418 (7.35-7.45); ABG PO2 100.1 MM HG (80-95); ABG TCO2 15.5 MMOL/L (23-27)
[2021-04-09 03:45] LABS: Basophils % 0.1 % (0.0-0.8); Eosinophils % 0.1 % (0.00-10.9); Hematocrit 35.5 VOL% (35.7-47.0); Hemoglobin 11.2 GM/DL (12.0-16.0); Immature Granulocytes % 0.9 %; Immature Granulocytes Absolute 0.18 #; Lymphocytes # 1.1 10*3/uL (1.4-4.0); Lymphocytes % 5.7 % (21.3-54.2); Mean Corpuscular HGB Conc 31.5 GM/DL (32-36); Mean Corpuscular Volume 84.7 FL (87-102); Mean Platelet Volume 9.7 FL (9.6-12.0); Monocytes % 3.1 % (1.7-12.7); Neutrophils % 90.1 % (38.7-73.9); Platelet Count 323 T/CUMM (130-400); Red Blood Count 4.19 MC/CUMM (3.8-5.5); Red Cell Distribution Width 13.9 % (9.3-17.3); White Blood Count 19.2 T/CUMM (4-12)
[2021-04-09 04:02] LABS: Alanine Aminotransferase 29 U/L (13-56); Albumin 1.9 G/DL (3.4-5.0); Alkaline Phosphatase 65 U/L (45-117); Aspartate Amino Transferase 31 U/L (0-37); Bilirubin,Total < 0.39 MG/DL (0.20-1.00); Blood Urea Nitrogen 26 MG/DL (7-18); Calcium 6.9 MG/DL (8.5-10.1); Carbon Dioxide 16 MMOL/L (21-32); Estimated Glom Filtration Rate 77 ML/MIN; Glucose 241 MG/DL (74-106); Osmolality,Calculated 304.4 MOS/KG (273-304); Potassium 3.5 MMOL/L (3.5-5.1); Sodium 147 MMOL/L (136-145)
[2021-04-09 04:03] LABS: CKMB % 5.9 %
[2021-04-09 04:17] LABS: Band Neutrophils 1 % (0-10); Hypochromia Slight; Lymphocytes 9 % (20-55); Segmented Neutrophils 88 % (50-85); Total Cells Counted 100
[2021-04-09 04:18] LABS: Microcytosis Slight
[2021-04-09] MEDS: INSULIN REGULAR DRIP 100 ML IV PRN (04:29)
[2021-04-09 04:40] LABS: INR 1.1; PT Patient Result 11.8 SECS (10.5-12.0); Partial Thromboplastin Time 36.2 SECS (23.8-32.1)
[2021-04-09] MEDS: ASPIRIN CHEW 81 MG TABLET PO SCH (08:33)
[2021-04-09] MEDS: FAMOTIDINE 20 MG/2 ML VIAL IV SCH ×2 (08:40→21:11)
[2021-04-09] MEDS: MINERAL OIL/PETROLATUM OPH OINT 3.5 GM TUBE BOTH EYES SCH ×3 (08:51→21:52)
[2021-04-09] MEDS ORDERED: INSULIN GLARGINE 100 UNIT/ML SUBCUT SCH (09:00)
[2021-04-09 10:09] LABS: Basophils % 0.1 % (0.0-0.8); Eosinophils % 0.1 % (0.00-10.9); Hematocrit 34.6 VOL% (35.7-47.0); Hemoglobin 10.8 GM/DL (12.0-16.0); Immature Granulocytes % 1.1 %; Immature Granulocytes Absolute 0.21 #; Mean Corpuscular HGB Conc 31.2 GM/DL (32-36); Mean Corpuscular Volume 84.8 FL (87-102); Mean Platelet Volume 9.7 FL (9.6-12.0); Monocytes % 3.8 % (1.7-12.7); Neutrophils % 89.9 % (38.7-73.9); Platelet Count 324 T/CUMM (130-400); Red Blood Count 4.08 MC/CUMM (3.8-5.5); Red Cell Distribution Width 13.9 % (9.3-17.3); White Blood Count 19.9 T/CUMM (4-12)
[2021-04-09 10:20] LABS: INR 1.1; PT Patient Result 11.9 SECS (10.5-12.0); Partial Thromboplastin Time 34.7 SECS (23.8-32.1)
[2021-04-09 10:27] LABS: Band Neutrophils 1 % (0-10); Hypochromia Slight; Lymphocytes 3 % (20-55); Microcytosis Slight; Platelet Estimate Adequate; Segmented Neutrophils 94 % (50-85); Total Cells Counted 100
[2021-04-09 10:34] LABS: Alanine Aminotransferase 27 U/L (13-56); Albumin 2.2 G/DL (3.4-5.0); Alkaline Phosphatase 66 U/L (45-117); Aspartate Amino Transferase 35 U/L (0-37); Bilirubin,Total < 0.39 MG/DL (0.20-1.00); Blood Urea Nitrogen 28 MG/DL (7-18); Carbon Dioxide 17 MMOL/L (21-32); Estimated Glom Filtration Rate 77 ML/MIN; Glucose 180 MG/DL (74-106); Osmolality,Calculated 304.3 MOS/KG (273-304); Potassium 3.6 MMOL/L (3.5-5.1); Sodium 148 MMOL/L (136-145); Total Protein 4.8 G/DL (6.4-8.2)
[2021-04-09] MEDS: INSULIN LISPRO 100 UNIT/ML SUBCUT SCH ×3 (12:13→20:17)
[2021-04-09] MEDS: DEXTROSE 5% 1,000 ML IV SCH ×2 (15:53→17:02)
[2021-04-09 16:25] LABS: ABG Base Excess -7.8 MMOL/L (-2.5-2.5); ABG HCO3 18.1 MMOL/L (20-26); ABG Oxygen Saturation 96.2 % (95-100); ABG PCO2 28.2 MM HG (35-48); ABG PH 7.371 (7.35-7.45); ABG TCO2 14.8 MMOL/L (23-27)
[2021-04-09 16:31] LABS: Basophils % 0.1 % (0.0-0.8); Hematocrit 33.6 VOL% (35.7-47.0); Hemoglobin 10.5 GM/DL (12.0-16.0); Immature Granulocytes % 0.9 %; Immature Granulocytes Absolute 0.18 #; Lymphocytes # 0.9 10*3/uL (1.4-4.0); Lymphocytes % 4.2 % (21.3-54.2); Mean Corpuscular HGB Conc 31.3 GM/DL (32-36); Mean Corpuscular Volume 86.4 FL (87-102); Mean Platelet Volume 10.1 FL (9.6-12.0); Monocytes % 3.6 % (1.7-12.7); Neutrophils % 91.2 % (38.7-73.9); Platelet Count 345 T/CUMM (130-400); Red Blood Count 3.89 MC/CUMM (3.8-5.5); Red Cell Distribution Width 14.2 % (9.3-17.3); White Blood Count 20.9 T/CUMM (4-12)
[2021-04-09 16:41] LABS: INR 1.1; PT Patient Result 11.8 SECS (10.5-12.0); Partial Thromboplastin Time 32.1 SECS (23.8-32.1)
[2021-04-09 17:00] LABS: Anisocytosis Slight; Band Neutrophils 1 % (0-10); Hypochromia Slight; Lymphocytes 1 % (20-55); Platelet Estimate Adequate; Segmented Neutrophils 93 % (50-85); Total Cells Counted 100
[2021-04-09 17:03] LABS: Alanine Aminotransferase 26 U/L (13-56); Albumin 2.1 G/DL (3.4-5.0); Alkaline Phosphatase 65 U/L (45-117); Aspartate Amino Transferase 35 U/L (0-37); Bilirubin,Total < 0.39 MG/DL (0.20-1.00); Blood Urea Nitrogen 29 MG/DL (7-18); CKMB % 4.6 %; Calcium 7.2 MG/DL (8.5-10.1); Carbon Dioxide 16 MMOL/L (21-32); Estimated Glom Filtration Rate 69 ML/MIN; Glucose 286 MG/DL (74-106); Osmolality,Calculated 301.8 MOS/KG (273-304); Potassium 4.6 MMOL/L (3.5-5.1); Sodium 144 MMOL/L (136-145); Total Protein 5.3 G/DL (6.4-8.2)
[2021-04-09] MEDS: ROSUVASTATIN 20 MG TABLET NG SCH (21:06)
[2021-04-09] MEDS: ENOXAPARIN 40 MG/0.4 ML SYRINGE SUBCUT SCH (21:15)
[2021-04-09 22:22] LABS: Basophils % 0.1 % (0.0-0.8); Hematocrit 33.5 VOL% (35.7-47.0); Hemoglobin 10.3 GM/DL (12.0-16.0); Immature Granulocytes % 1.4 %; Immature Granulocytes Absolute 0.29 #; Lymphocytes # 0.8 10*3/uL (1.4-4.0); Lymphocytes % 3.7 % (21.3-54.2); Mean Corpuscular HGB Conc 30.7 GM/DL (32-36); Mean Corpuscular Volume 86.1 FL (87-102); Mean Platelet Volume 10.1 FL (9.6-12.0); Monocytes % 3.6 % (1.7-12.7); Neutrophils % 91.2 % (38.7-73.9); Platelet Count 369 T/CUMM (130-400); Red Blood Count 3.89 MC/CUMM (3.8-5.5); Red Cell Distribution Width 14.4 % (9.3-17.3); White Blood Count 20.9 T/CUMM (4-12)
[2021-04-09 22:33] LABS: INR 1.1; PT Patient Result 12.2 SECS (10.5-12.0); Partial Thromboplastin Time 33.1 SECS (23.8-32.1)
[2021-04-09 22:44] LABS: Alanine Aminotransferase 26 U/L (13-56); Albumin 2.1 G/DL (3.4-5.0); Alkaline Phosphatase 66 U/L (45-117); Aspartate Amino Transferase 31 U/L (0-37); Bilirubin,Total < 0.39 MG/DL (0.20-1.00); Blood Urea Nitrogen 34 MG/DL (7-18); Calcium 6.9 MG/DL (8.5-10.1); Carbon Dioxide 17 MMOL/L (21-32); Estimated Glom Filtration Rate 56 ML/MIN; Glucose 325 MG/DL (74-106); Osmolality,Calculated 306.8 MOS/KG (273-304); Potassium 4.4 MMOL/L (3.5-5.1); Sodium 144 MMOL/L (136-145); Total Protein 5.5 G/DL (6.4-8.2)
[2021-04-09 22:45] LABS: Lymphocytes 5 % (20-55); Segmented Neutrophils 93 % (50-85); Total Cells Counted 100
[2021-04-09 22:46] LABS: Platelet Estimate Increased
[2021-04-10] MEDS: INSULIN LISPRO 100 UNIT/ML SUBCUT SCH ×8 (00:33→23:55)
[2021-04-10] MEDS: methylPREDNISolone SOD SUC 40 MG/1 ML VIAL IV SCH ×5 (00:34→23:53)
[2021-04-10] MEDS: ALBUTEROL/IPRATROPIUM 3 ML NEB RESP TX SCH ×4 (00:35→18:23)
[2021-04-10] MEDS: metroNIDAZOLE INJ 500 MG/100 ML PREMIX IV SCH ×3 (02:08→18:11)
[2021-04-10] MEDS: MEROPENEM 500 MG in SODIUM CHLORIDE 0.9% 100 ML IV SCH ×4 (03:15→21:19)
[2021-04-10] MEDS: SODIUM CHLORIDE 0.9% 1,000 ML IV SCH ×2 (03:20→12:01)
[2021-04-10 04:09] LABS: ABG Base Excess -7.7 MMOL/L (-2.5-2.5); ABG HCO3 16.2 MMOL/L (20-26); ABG Oxygen Saturation 96.6 % (95-100); ABG PCO2 27.8 MM HG (35-48); ABG PH 7.382 (7.35-7.45)
[2021-04-10 04:23] LABS: Basophils % 0.1 % (0.0-0.8); Hematocrit 33.8 VOL% (35.7-47.0); Hemoglobin 10.4 GM/DL (12.0-16.0); Immature Granulocytes % 1.4 %; Immature Granulocytes Absolute 0.25 #; Lymphocytes # 0.8 10*3/uL (1.4-4.0); Lymphocytes % 4.7 % (21.3-54.2); Mean Corpuscular HGB Conc 30.8 GM/DL (32-36); Mean Corpuscular Volume 87.6 FL (87-102); Mean Platelet Volume 10.1 FL (9.6-12.0); Monocytes % 3.6 % (1.7-12.7); Neutrophils % 90.2 % (38.7-73.9); Platelet Count 388 T/CUMM (130-400); Red Blood Count 3.86 MC/CUMM (3.8-5.5); Red Cell Distribution Width 14.4 % (9.3-17.3); White Blood Count 17.9 T/CUMM (4-12)
[2021-04-10 04:35] LABS: INR 1.1; PT Patient Result 11.9 SECS (10.5-12.0); Partial Thromboplastin Time 32.8 SECS (23.8-32.1)
[2021-04-10 04:43] LABS: Alanine Aminotransferase 24 U/L (13-56); Albumin 2.2 G/DL (3.4-5.0); Alkaline Phosphatase 69 U/L (45-117); Aspartate Amino Transferase 40 U/L (0-37); Bilirubin,Total < 0.39 MG/DL (0.20-1.00); Blood Urea Nitrogen 39 MG/DL (7-18); Calcium 6.9 MG/DL (8.5-10.1); Carbon Dioxide 18 MMOL/L (21-32); Estimated Glom Filtration Rate 47 ML/MIN; Glucose 349 MG/DL (74-106); Osmolality,Calculated 301.4 MOS/KG (273-304); Osmolality,Calculated 311.7 MOS/KG (273-304); Potassium 4.4 MMOL/L (3.5-5.1); Potassium 4.5 MMOL/L (3.5-5.1); Sodium 140 MMOL/L (136-145); Total Protein 5.7 G/DL (6.4-8.2)
[2021-04-10 04:46] LABS: Hypochromia Slight; Lymphocytes 3 % (20-55); Microcytosis Slight; Platelet Estimate Adequate; Segmented Neutrophils 95 % (50-85); Total Cells Counted 100
[2021-04-10] MEDS ORDERED: INSULIN GLARGINE 100 UNIT/ML SUBCUT SCH (09:00)
[2021-04-10] MEDS: ASPIRIN CHEW 81 MG TABLET PO SCH (11:54)
[2021-04-10] MEDS: FAMOTIDINE 20 MG/2 ML VIAL IV SCH ×2 (11:54→21:25)
[2021-04-10] MEDS: MINERAL OIL/PETROLATUM OPH OINT 3.5 GM TUBE BOTH EYES SCH ×2 (11:56→16:47)
[2021-04-10] MEDS: DEXTROSE 5% 1,000 ML IV SCH (16:36)
[2021-04-10] MEDS ORDERED: MINERAL OIL/PETROLATUM OPH OINT 3.5 GM TUBE BOTH EYES PRN (16:48)
[2021-04-10] MEDS: ENOXAPARIN 40 MG/0.4 ML SYRINGE SUBCUT SCH (21:26)
[2021-04-10] MEDS: ROSUVASTATIN 20 MG TABLET NG SCH (22:10)
[2021-04-11] MEDS: ALBUTEROL/IPRATROPIUM 3 ML NEB RESP TX SCH ×4 (00:40→19:44)
[2021-04-11] MEDS: metroNIDAZOLE INJ 500 MG/100 ML PREMIX IV SCH ×3 (02:02→17:00)
[2021-04-11] MEDS: MEROPENEM 500 MG in SODIUM CHLORIDE 0.9% 100 ML IV SCH ×4 (02:53→20:43)
[2021-04-11 03:39] LABS: Basophils % 0.1 % (0.0-0.8); Hematocrit 35.4 VOL% (35.7-47.0); Hemoglobin 10.5 GM/DL (12.0-16.0); Immature Granulocytes Absolute 0.21 #; Lymphocytes # 0.9 10*3/uL (1.4-4.0); Lymphocytes % 8.6 % (21.3-54.2); Mean Corpuscular HGB Conc 29.7 GM/DL (32-36); Mean Corpuscular Volume 88.5 FL (87-102); Mean Platelet Volume 10.5 FL (9.6-12.0); NRBC # 0.04 10*3/uL; Neutrophils % 81.3 % (38.7-73.9); Platelet Count 241 T/CUMM (130-400); Red Cell Distribution Width 14.4 % (9.3-17.3); White Blood Count 10.4 T/CUMM (4-12)
[2021-04-11 03:44] LABS: ABG HCO3 20.3 MMOL/L (20-26); ABG Oxygen Saturation 96.9 % (95-100); ABG PCO2 31.2 MM HG (35-48); ABG PO2 93.9 MM HG (80-95); ABG TCO2 16.4 MMOL/L (23-27); Allen Test Positive; Pt O2 Delivery Device Ventilator
[2021-04-11] MEDS: SODIUM CHLORIDE 0.9% 1,000 ML IV SCH ×3 (03:57→14:00)
[2021-04-11 04:02] LABS: Calcium 7.3 MG/DL (8.5-10.1); Osmolality,Calculated 317.3 MOS/KG (273-304); Potassium 4.8 MMOL/L (3.5-5.1)
[2021-04-11] MEDS: INSULIN LISPRO 100 UNIT/ML SUBCUT SCH ×6 (04:30→23:20)
[2021-04-11] MEDS: methylPREDNISolone SOD SUC 40 MG/1 ML VIAL IV SCH ×4 (06:30→23:20)
[2021-04-11] MEDS: FAMOTIDINE 20 MG/2 ML VIAL IV SCH ×2 (08:30→20:34)
[2021-04-11] MEDS: ASPIRIN CHEW 81 MG TABLET PO SCH (08:30)
[2021-04-11] MEDS ORDERED: INSULIN GLARGINE 100 UNIT/ML SUBCUT SCH (09:00)
[2021-04-11] MEDS: METOPROLOL TARTRATE 25 MG TABLET NG SCH ×2 (12:15→20:34)
[2021-04-11] MEDS ORDERED: METOPROLOL TARTRATE 5 MG/5 ML VIAL IV ONE ×2 (14:18→15:15)
[2021-04-11] MEDS: niCARdipine INJ 25 MG in SODIUM CHLORIDE 0.9% 240 ML IV PRN ×2 (18:00→22:00)
[2021-04-11] MEDS: ENOXAPARIN 40 MG/0.4 ML SYRINGE SUBCUT SCH (20:33)
[2021-04-11] MEDS: ROSUVASTATIN 20 MG TABLET NG SCH (20:34)
[2021-04-12] MEDS: SODIUM CHLORIDE 0.9% 1,000 ML IV SCH (00:05)
[2021-04-12] MEDS: niCARdipine INJ 25 MG in SODIUM CHLORIDE 0.9% 240 ML IV PRN ×4 (00:45→09:50)
[2021-04-12] MEDS: ALBUTEROL/IPRATROPIUM 3 ML NEB RESP TX SCH ×4 (01:15→20:28)
[2021-04-12] MEDS: metroNIDAZOLE INJ 500 MG/100 ML PREMIX IV SCH ×3 (02:02→17:50)
[2021-04-12] MEDS: MEROPENEM 500 MG in SODIUM CHLORIDE 0.9% 100 ML IV SCH ×4 (03:10→20:36)
[2021-04-12 04:27] LABS: ABG Base Excess -7.2 MMOL/L (-2.5-2.5); ABG HCO3 18.5 MMOL/L (20-26); ABG Oxygen Saturation 91.8 % (95-100); ABG PCO2 33.5 MM HG (35-48); ABG PH 7.333 (7.35-7.45); ABG PO2 69.8 MM HG (80-95); Allen Test Positive; Pt O2 Delivery Device Ventilator
[2021-04-12 04:39] LABS: Calcium 7.8 MG/DL (8.5-10.1); Osmolality,Calculated 321.1 MOS/KG (273-304); Potassium 4.6 MMOL/L (3.5-5.1)
[2021-04-12] MEDS: INSULIN LISPRO 100 UNIT/ML SUBCUT SCH ×6 (04:48→23:48)
[2021-04-12 05:02] LABS: Basophils # 0.1 10*3/uL (0.0-0.2); Basophils % 0.7 % (0.0-0.8); Hematocrit 39.4 VOL% (35.7-47.0); Hemoglobin 11.5 GM/DL (12.0-16.0); Immature Granulocytes % 7.4 %; Immature Granulocytes Absolute 0.78 #; Lymphocytes % 9.3 % (21.3-54.2); Mean Corpuscular HGB Conc 29.2 GM/DL (32-36); Mean Platelet Volume 10.1 FL (9.6-12.0); Monocytes % 8.4 % (1.7-12.7); NRBC # 0.14 10*3/uL; Neutrophils % 74.2 % (38.7-73.9); Red Blood Count 4.38 MC/CUMM (3.8-5.5); Red Cell Distribution Width 14.2 % (9.3-17.3); White Blood Count 10.5 T/CUMM (4-12)
[2021-04-12 05:04] LABS: Platelet Count 319 T/CUMM (130-400)
[2021-04-12 05:13] LABS: Lymphocytes 13 % (20-55); Myelocytes 1 %; Nucleated Red Blood Cells 1 (0-5); Promyelocytes 1 %; Segmented Neutrophils 78 % (50-85); Total Cells Counted 100
[2021-04-12 05:16] LABS: Hypochromia 1+; Microcytosis 1+; Platelet Estimate Normal
[2021-04-12] MEDS: methylPREDNISolone SOD SUC 40 MG/1 ML VIAL IV SCH ×2 (05:41→17:50)
[2021-04-12] MEDS: LACTATED RINGERS 1,000 ML IV SCH ×2 (09:00→19:16)
[2021-04-12] MEDS: INSULIN GLARGINE 100 UNIT/ML SUBCUT SCH (09:00)
[2021-04-12] MEDS: FAMOTIDINE 20 MG/2 ML VIAL IV SCH ×2 (09:05→20:27)
[2021-04-12] MEDS: METOPROLOL TARTRATE 25 MG TABLET NG SCH (09:10)
[2021-04-12] MEDS: ASPIRIN CHEW 81 MG TABLET PO SCH (09:10)
[2021-04-12] MEDS: METOPROLOL TARTRATE 50 MG TABLET NG SCH ×2 (12:10→20:27)
[2021-04-12] MEDS: niCARdipine INJ 50 MG in SODIUM CHLORIDE 0.9% 480 ML IV PRN ×3 (12:30→23:30)
[2021-04-12 18:33] VITALS: BP 160/72
[2021-04-12] MEDS: ROSUVASTATIN 20 MG TABLET NG SCH (20:27)
[2021-04-12] MEDS: ACETAMINOPHEN 325 MG/10.15 ML UDCUP PO PRN (20:28)
[2021-04-12] MEDS: ENOXAPARIN 40 MG/0.4 ML SYRINGE SUBCUT SCH (20:34)
[2021-04-13] MEDS: ALBUTEROL/IPRATROPIUM 3 ML NEB RESP TX SCH ×4 (01:14→20:00)
[2021-04-13] MEDS: ACETAMINOPHEN 325 MG/10.15 ML UDCUP PO PRN (01:15)
[2021-04-13] MEDS: metroNIDAZOLE INJ 500 MG/100 ML PREMIX IV SCH ×3 (03:02→18:16)
[2021-04-13] MEDS: MEROPENEM 500 MG in SODIUM CHLORIDE 0.9% 100 ML IV SCH ×4 (03:15→21:49)
[2021-04-13 03:32] LABS: ABG Base Excess -5.2 MMOL/L (-2.5-2.5); ABG HCO3 19.8 MMOL/L (20-26); ABG Oxygen Saturation 91.2 % (95-100); ABG PCO2 36.7 MM HG (35-48); ABG PH 7.349 (7.35-7.45); ABG PO2 63.8 MM HG (80-95); ABG TCO2 20.9 MMOL/L (23-27)
[2021-04-13] MEDS: INSULIN LISPRO 100 UNIT/ML SUBCUT SCH ×5 (04:26→21:49)
[2021-04-13 04:30] LABS: Calcium 6.8 MG/DL (8.5-10.1); Osmolality,Calculated 332.6 MOS/KG (273-304); Potassium 5.3 MMOL/L (3.5-5.1)
[2021-04-13 04:40] LABS: Basophils % 0.2 % (0.0-0.8); Hematocrit 40.7 VOL% (35.7-47.0); Hemoglobin 11.7 GM/DL (12.0-16.0); Immature Granulocytes % 6.4 %; Immature Granulocytes Absolute 0.68 #; Lymphocytes % 9.1 % (21.3-54.2); Mean Corpuscular HGB Conc 28.7 GM/DL (32-36); Mean Corpuscular Volume 91.7 FL (87-102); Mean Platelet Volume 10.3 FL (9.6-12.0); Monocytes % 10.4 % (1.7-12.7); Neutrophils % 73.9 % (38.7-73.9); Platelet Count 320 T/CUMM (130-400); Red Blood Count 4.44 MC/CUMM (3.8-5.5); Red Cell Distribution Width 13.8 % (9.3-17.3); White Blood Count 10.7 T/CUMM (4-12)
[2021-04-13 04:52] LABS: Band Neutrophils 1 % (0-10); Hypochromia Slight; Lymphocytes 10 % (20-55); Microcytosis Slight; Nucleated Red Blood Cells 2 (0-5); Platelet Estimate Adequate; Segmented Neutrophils 82 % (50-85); Total Cells Counted 100
[2021-04-13] MEDS: niCARdipine INJ 50 MG in SODIUM CHLORIDE 0.9% 480 ML IV PRN ×4 (05:00→23:14)
[2021-04-13] MEDS ORDERED: SODIUM CHLORIDE 0.45% 1,000 ML IV SCH (05:14)
[2021-04-13] MEDS ORDERED: SODIUM POLYSTYRENE SULFATE 15 GM/60 ML BOTTLE PO ONE (05:15)
[2021-04-13] MEDS: LACTATED RINGERS 1,000 ML IV SCH (05:19)
[2021-04-13] MEDS: methylPREDNISolone SOD SUC 40 MG/1 ML VIAL IV SCH ×2 (06:12→18:13)
[2021-04-13] MEDS: ASPIRIN CHEW 81 MG TABLET PO SCH (08:38)
[2021-04-13] MEDS: METOPROLOL TARTRATE 50 MG TABLET NG SCH ×2 (08:38→21:48)
[2021-04-13] MEDS: FAMOTIDINE 20 MG/2 ML VIAL IV SCH ×2 (08:39→21:51)
[2021-04-13] MEDS: INSULIN GLARGINE 100 UNIT/ML SUBCUT SCH (08:40)
[2021-04-13] MEDS: amLODIPine 10 MG TABLET NG SCH (09:59)
[2021-04-13 12:15] LABS: Amorphous Crystals,Urine Occasional /HPF (Few); Bilirubin,Urine Negative (Negative); Blood, Urine Moderate mg/dL (Negative); Glucose,Urine (UA) >=500 mg/dL (Negative); Ketones,Urine Negative (Negative); Mucus,Urine Occasional /LPF (Occasional); Nitrite,Urine Negative (Negative); Protein,Urine 30 MG/DL; RBC,Urine 3 /HPF (0-4); Urine Appearance CLEAR (Clear); Urine Color Yellow (Yellow); Urine Specific Gravity 1.026 (1.001-1.035); Urine Urobilinogen < 2.0 EU/DL (<2.0)
[2021-04-13] MEDS: metOLazone 5 MG TABLET NG SCH (13:57)
[2021-04-13] MEDS: ROSUVASTATIN 20 MG TABLET NG SCH (21:47)
[2021-04-13] MEDS: ENOXAPARIN 40 MG/0.4 ML SYRINGE SUBCUT SCH (21:50)
[2021-04-14] MEDS: ALBUTEROL/IPRATROPIUM 3 ML NEB RESP TX SCH ×4 (00:06→19:18)
[2021-04-14] MEDS: INSULIN LISPRO 100 UNIT/ML SUBCUT SCH ×6 (00:22→21:24)
[2021-04-14] MEDS: MEROPENEM 500 MG in SODIUM CHLORIDE 0.9% 100 ML IV SCH ×4 (02:40→21:20)
[2021-04-14] MEDS: metroNIDAZOLE INJ 500 MG/100 ML PREMIX IV SCH (02:40)
[2021-04-14 04:27] LABS: Calcium 7.3 MG/DL (8.5-10.1); Osmolality,Calculated 343.9 MOS/KG (273-304); Potassium 4.6 MMOL/L (3.5-5.1)
[2021-04-14 04:46] LABS: Basophils % 0.1 % (0.0-0.8); Hemoglobin 12.8 GM/DL (12.0-16.0); Immature Granulocytes % 3.1 %; Immature Granulocytes Absolute 0.49 #; Lymphocytes # 0.9 10*3/uL (1.4-4.0); Lymphocytes % 5.4 % (21.3-54.2); Mean Corpuscular HGB Conc 28.4 GM/DL (32-36); Mean Platelet Volume 10.5 FL (9.6-12.0); Monocytes % 10.8 % (1.7-12.7); NRBC # 0.18 10*3/uL; Neutrophils % 80.6 % (38.7-73.9); Platelet Count 296 T/CUMM (130-400); Red Blood Count 4.84 MC/CUMM (3.8-5.5); Red Cell Distribution Width 13.7 % (9.3-17.3); White Blood Count 15.8 T/CUMM (4-12)
[2021-04-14 04:56] LABS: ABG Base Excess -5.1 MMOL/L (-2.5-2.5); ABG HCO3 19.4 MMOL/L (20-26); ABG Oxygen Saturation 96.5 % (95-100); ABG PCO2 34.2 MM HG (35-48); ABG PH 7.371 (7.35-7.45); ABG TCO2 20.4 MMOL/L (23-27); Allen Test Positive; Pt O2 Delivery Device Ventilator
[2021-04-14] MEDS: methylPREDNISolone SOD SUC 40 MG/1 ML VIAL IV SCH ×2 (06:15→18:22)
[2021-04-14] MEDS: METOPROLOL TARTRATE 50 MG TABLET NG SCH (08:19)
[2021-04-14] MEDS: amLODIPine 10 MG TABLET NG SCH (08:19)
[2021-04-14] MEDS: metOLazone 5 MG TABLET NG SCH (08:19)
[2021-04-14] MEDS: ASPIRIN CHEW 81 MG TABLET PO SCH (08:19)
[2021-04-14] MEDS: INSULIN GLARGINE 100 UNIT/ML SUBCUT SCH (08:20)
[2021-04-14] MEDS: FAMOTIDINE 20 MG/2 ML VIAL IV SCH ×2 (08:21→21:30)
[2021-04-14] MEDS: INSULIN NPH/REGULAR 70/30 100 UNIT/ML SUBCUT SCH ×2 (09:45→21:24)
[2021-04-14] MEDS: METOCLOPRAMIDE 10 MG/2 ML VIAL IV SCH ×3 (09:45→21:28)
[2021-04-14] MEDS: niCARdipine INJ 50 MG in SODIUM CHLORIDE 0.9% 480 ML IV PRN (09:57)
[2021-04-14] MEDS: ENOXAPARIN 40 MG/0.4 ML SYRINGE SUBCUT SCH (21:24)
[2021-04-14] MEDS: METOPROLOL TARTRATE 100 MG TABLET NG SCH (21:25)
[2021-04-14] MEDS: ROSUVASTATIN 20 MG TABLET NG SCH (21:25)
[2021-04-15] MEDS: ALBUTEROL/IPRATROPIUM 3 ML NEB RESP TX SCH ×4 (00:01→20:42)
[2021-04-15] MEDS: INSULIN LISPRO 100 UNIT/ML SUBCUT SCH ×6 (00:16→23:28)
[2021-04-15] MEDS: MEROPENEM 500 MG in SODIUM CHLORIDE 0.9% 100 ML IV SCH ×4 (04:21→21:00)
[2021-04-15] MEDS: METOCLOPRAMIDE 10 MG/2 ML VIAL IV SCH ×4 (04:28→21:08)
[2021-04-15 04:33] LABS: ABG Base Excess -3.1 MMOL/L (-2.5-2.5); ABG HCO3 21.4 MMOL/L (20-26); ABG Oxygen Saturation 94.8 % (95-100); ABG PCO2 36.9 MM HG (35-48); ABG PH 7.382 (7.35-7.45); ABG PO2 80.5 MM HG (80-95); ABG TCO2 22.6 MMOL/L (23-27); Allen Test Positive; Pt O2 Delivery Device Ventilator
[2021-04-15] MEDS: methylPREDNISolone SOD SUC 40 MG/1 ML VIAL IV SCH ×2 (06:43→18:15)
[2021-04-15] MEDS: amLODIPine 10 MG TABLET NG SCH (08:49)
[2021-04-15] MEDS: METOPROLOL TARTRATE 100 MG TABLET NG SCH ×2 (08:49→23:29)
[2021-04-15] MEDS: ASPIRIN CHEW 81 MG TABLET PO SCH (08:49)
[2021-04-15] MEDS: metOLazone 5 MG TABLET NG SCH (08:49)
[2021-04-15] MEDS: FAMOTIDINE 20 MG/2 ML VIAL IV SCH ×2 (08:50→21:04)
[2021-04-15] MEDS: INSULIN GLARGINE 100 UNIT/ML SUBCUT SCH (09:50)
[2021-04-15] MEDS: INSULIN NPH/REGULAR 70/30 100 UNIT/ML SUBCUT SCH ×2 (10:10→23:28)
[2021-04-15 15:59] LABS: Calcium 7.9 MG/DL (8.5-10.1); Potassium 5.4 MMOL/L (3.5-5.1)
[2021-04-15] MEDS: ACETAMINOPHEN 325 MG/10.15 ML UDCUP PO PRN (21:30)
[2021-04-15] MEDS: ROSUVASTATIN 20 MG TABLET NG SCH (23:28)
[2021-04-15] MEDS: ENOXAPARIN 40 MG/0.4 ML SYRINGE SUBCUT SCH (23:30)
[2021-04-16] MEDS: INSULIN LISPRO 100 UNIT/ML SUBCUT SCH ×6 (01:24→21:11)
[2021-04-16] MEDS: ALBUTEROL/IPRATROPIUM 3 ML NEB RESP TX SCH ×3 (02:03→13:00)
[2021-04-16] MEDS: METOCLOPRAMIDE 10 MG/2 ML VIAL IV SCH ×4 (03:30→20:52)
[2021-04-16 04:24] LABS: Calcium 8.1 MG/DL (8.5-10.1); Potassium 5.5 MMOL/L (3.5-5.1)
[2021-04-16] MEDS: MEROPENEM 500 MG in SODIUM CHLORIDE 0.9% 100 ML IV SCH ×4 (04:26→20:53)
[2021-04-16 04:28] LABS: ABG Base Excess -0.7 MMOL/L (-2.5-2.5); ABG HCO3 23.9 MMOL/L (20-26); ABG Oxygen Saturation 97.9 % (95-100); ABG PCO2 36.7 MM HG (35-48); ABG PH 7.415 (7.35-7.45); ABG TCO2 20.7 MMOL/L (23-27)
[2021-04-16] MEDS: methylPREDNISolone SOD SUC 40 MG/1 ML VIAL IV SCH ×2 (06:15→19:25)
[2021-04-16] MEDS: INSULIN NPH/REGULAR 70/30 100 UNIT/ML SUBCUT SCH ×2 (09:50→20:53)
[2021-04-16] MEDS: ASPIRIN CHEW 81 MG TABLET PO SCH (10:02)
[2021-04-16] MEDS: INSULIN GLARGINE 100 UNIT/ML SUBCUT SCH (10:02)
[2021-04-16] MEDS: METOPROLOL TARTRATE 100 MG TABLET NG SCH ×2 (10:03→20:53)
[2021-04-16] MEDS: amLODIPine 10 MG TABLET NG SCH (10:04)
[2021-04-16] MEDS: FAMOTIDINE 20 MG/2 ML VIAL IV SCH ×2 (10:04→20:52)
[2021-04-16] MEDS: SODIUM CHLORIDE 0.45% 1,000 ML IV SCH ×2 (10:36→20:54)
[2021-04-16] MEDS: ACETAMINOPHEN 325 MG/10.15 ML UDCUP PO PRN (16:50)
[2021-04-16] MEDS: ENOXAPARIN 40 MG/0.4 ML SYRINGE SUBCUT SCH (20:51)
[2021-04-16] MEDS: ROSUVASTATIN 20 MG TABLET NG SCH (20:54)
[2021-04-17] MEDS: ACETAMINOPHEN 325 MG/10.15 ML UDCUP PO PRN ×2 (00:12→04:29)
[2021-04-17] MEDS: INSULIN LISPRO 100 UNIT/ML SUBCUT SCH ×6 (00:13→21:06)
[2021-04-17] MEDS: MEROPENEM 500 MG in SODIUM CHLORIDE 0.9% 100 ML IV SCH ×4 (02:42→22:37)
[2021-04-17] MEDS: METOCLOPRAMIDE 10 MG/2 ML VIAL IV SCH ×4 (02:43→22:38)
[2021-04-17] MEDS: ALBUTEROL/IPRATROPIUM 3 ML NEB RESP TX SCH ×5 (05:17→19:15)
[2021-04-17] MEDS: methylPREDNISolone SOD SUC 40 MG/1 ML VIAL IV SCH ×2 (06:00→18:02)
[2021-04-17] MEDS: SODIUM CHLORIDE 0.45% 1,000 ML IV SCH ×2 (07:18→17:19)
[2021-04-17] MEDS: FAMOTIDINE 20 MG/2 ML VIAL IV SCH ×2 (09:06→22:38)
[2021-04-17] MEDS: ASPIRIN CHEW 81 MG TABLET PO SCH (09:06)
[2021-04-17] MEDS: METOPROLOL TARTRATE 100 MG TABLET NG SCH ×2 (09:06→22:37)
[2021-04-17] MEDS: amLODIPine 10 MG TABLET NG SCH (09:06)
[2021-04-17] MEDS: INSULIN GLARGINE 100 UNIT/ML SUBCUT SCH (09:07)
[2021-04-17] MEDS: INSULIN NPH/REGULAR 70/30 100 UNIT/ML SUBCUT SCH ×2 (09:08→22:37)
[2021-04-17] MEDS: ROSUVASTATIN 20 MG TABLET NG SCH (22:36)
[2021-04-17] MEDS: ENOXAPARIN 40 MG/0.4 ML SYRINGE SUBCUT SCH (22:38)
== END 2021-04-17 22:34 | disposition hospice, inpatient (51) | DRG 811 ==
LOC: EDUNIT# → EDBD → N.ED 19:08 → N.EDINP 21:24 → SUATTDRO 21:24 → N.ICU 22:06
PROVIDERS: ADMIT Internal Medicine; ATTEND Internal Medicine

== ENCOUNTER 2021-04-17 22:39 | Inpatient (IN) ==
[2021-04-17] MEDS ORDERED: MORPHINE 2 MG/1 ML SYRINGE IV PRN (22:51)
[2021-04-17] MEDS ORDERED: LORazepam 2 MG/1 ML VIAL IV PRN (22:51)
[2021-04-17] MEDS ORDERED: MORPHINE 4 MG/1 ML VIAL IV PRN (23:00)
[2021-04-18 05:02] VITALS: BP 124/75
== END 2021-04-17 23:45 | disposition expired | DRG 951 ==
LOC: SUATTDRO 22:39 → N.ICU 22:39
PROVIDERS: ADMIT Family Medicine; ATTEND Internal Medicine